=== PATIENT | male | born 1945 | race Caucasian/White ===

== ENCOUNTER 2018-03-04 12:00 | Inpatient (IN) | payer MEDICARE, MEDICAID ==
[~2018-03-04] VITALS: Ht 180.3 cm; Wt 46.5 kg
[~2018-03-04 12:00] MED LIST: ACLI400A2 IH; AMLO-512 PO; ASPI-26 PO; DOXA2TAB PO; OMEG-12 PO; SYMB8060 IH; TIOT4MIS2 IH; VITAD1000 PO
[2018-03-04] MEDS ORDERED: VALS160T2 PO (12:15)
[2018-03-04] MEDS ORDERED: ENOX30DI5 SQ (12:15)
[2018-03-04] MEDS ORDERED: LEVE500T53 PO (12:15)
[2018-03-04] MEDS ORDERED: AMIO200T44 PO (12:15)
[2018-03-04 12:24] LABS: ABG BASE EXCESS 3.6 mmol/L (-2.0-3.0); ABG CARBOXYHEMOGLOBIN 1.9 % (0.0-1.5); ABG HCO3 27.5 mmol/L (22.0-26.0); ABG METHEMOGLOBIN 0.3 % (0.0-1.5); ABG OXYGEN CONTENT 12.8 mL/dL (15.0-23.0); ABG OXYGEN SATURATION 86.2 % (95.0-98.0); ABG OXYHEMOGLOBIN 84.3 % (94.0-100.0); ABG PCO2 35 mmHg (35-45); ABG PH 7.498 (7.35-7.450); ABG TOTAL HEMOGLOBIN 10.8 G/dL (12.0-18.0); O2 DEVICE,BLOOD GAS VENTI MASK (ROOM AIR); PO2, ARTERIAL BG 52.7 mmHg (75.0-83.0); SITE, BLOOD GAS LFT RADIAL; SOURCE, BLOOD GAS ARTERIAL; TEMPERATURE, FAHRENHEIT, BG 98.6 FAHREN (96.0-98.6)
[2018-03-04] MEDS ORDERED: ALBUTEROL SULFATE 5 MG/ML 20 ML NEB SOLN [BULK] NEB ONE (12:30)
[2018-03-04] MEDS ORDERED: MethylPREDNISolone SOD SUCC 125 MG/2 ML VIAL IVP ONE ×2 (12:30→13:30)
[2018-03-04] MEDS ORDERED: IPRATROPIUM BROMIDE 0.5 MG/2.5 ML NEB SOLUTION NEB ONE (12:30)
[2018-03-04 12:48] LABS: HEMATOCRIT 31.9 % (41-53); HEMOGLOBIN 10.7 g/dL (13.5-17.5); MEAN CORPUSCULAR HEMOGLOBIN 30.1 pg (26.0-34.0); MEAN CORPUSCULAR HGB CONC 33.7 G/dL (31.0-37.0); MEAN CORPUSCULAR VOLUME 89 fL (80-100); PLATELET COUNT (AUTO) 409 K/uL (150-450); RED BLOOD CELL COUNT(AUTO) 3.58 MIL/uL (4.50-5.90); RED CELL DISTRIBUTION WIDTH 16.8 % (11.5-14.5)
[2018-03-04 12:59] LABS: ANION GAP 6 mmol/L (8-16); CALCIUM, TOTAL 7.8 mg/dL (8.8-10.5); CARBON DIOXIDE 30 mmol/L (22-29); CHLORIDE 101 mmol/L (98-107); GLOMERULAR FILTR. RATE CALC > 60 mL/min (>60); GLUCOSE,RANDOM 156 mg/dL (70-110); POTASSIUM 3.6 mmol/L (3.5-5.1); SODIUM SERUM 137 mmol/L (136-145); UREA NITROGEN, BLOOD 22 mg/dL (7-18)
[2018-03-04] MEDS ORDERED: PIPERACILLIN/TAZO 3.375 GM/D5W 50 ML IV ONE (13:00)
[2018-03-04] MEDS ORDERED: LEVOFLOXACIN 500 MG/D5% WATER 100 ML IV ONE (13:00)
[2018-03-04 13:12] LABS: B-TYPE NATRIURETIC PEPTIDE 119 pg/mL (0-100)
[2018-03-04 13:15] LABS: ALANINE AMINOTRANSFERASE 50 U/L (12-78); ALBUMIN 1.4 g/dL (3.4-5.0); ALKALINE PHOSPHATASE 136 U/L (46-116); ASPARTATE AMINOTRANSFERASE 36 U/L (15-37); BILIRUBIN,TOTAL 0.2 mg/dL (0.1-1.0); CREATINE KINASE, TOTAL 20 U/L (39-308); TOTAL PROTEIN, SERUM 5.7 g/dL (6.4-8.2)
[2018-03-04 13:20] LABS: BAND NEUTROPHILS % (MANUAL) 16 % (0-5); LYMPHOCYTES % (MANUAL) 7 % (22-44); MONOCYTES % (MANUAL) 2 % (2-9); SEGMENTED NEUTROPHILS % 75 % (40-70)
[2018-03-04] MEDS ORDERED: ONDANSETRON HCL 4 MG/2 ML VIAL IVP PRN (13:30)
[2018-03-04] MEDS ORDERED: ACETAMINOPHEN 325 MG TABLET PO PRN ×2 (13:30)
[2018-03-04] MEDS ORDERED: VANCOMYCIN HCL 1 GM/D5% WATER 200 ML IV ONE (14:00)
[2018-03-04] MEDS: ALBUTEROL SULFATE 2.5 MG/0.5 ML NEB SOLUTION NEB SCH ×3 (15:22→22:58)
[2018-03-04] MEDS: IPRATROPIUM BROMIDE 0.5 MG/2.5 ML NEB SOLUTION NEB SCH ×3 (15:22→22:58)
[2018-03-04 16:00] VITALS: BP 103/63
[2018-03-04] MEDS ORDERED: SODIUM CHLORIDE 0.9% 500 ML IV ONE (16:50)
[2018-03-04] MEDS: PIPERACILLIN/TAZO 3.375 GM/D5W 50 ML IV SCH (18:36)
[2018-03-04] MEDS: MethylPREDNISolone SOD SUCC 125 MG/2 ML VIAL IVP SCH (18:37)
[2018-03-04 20:00] VITALS: BP 90/57
[2018-03-04] MEDS: VANCOMYCIN HCL 1 GM/D5% WATER 200 ML IV SCH (20:32)
[2018-03-04] MEDS: HEPARIN SODIUM,PORCINE 5,000 UNITS/ML VIAL SQ SCH (20:32)
[2018-03-04] MEDS: DOCUSATE SODIUM 100 MG CAPSULE PO SCH (20:32)
[2018-03-05] VITALS: BP 91/48
[2018-03-05] MEDS: PIPERACILLIN/TAZO 3.375 GM/D5W 50 ML IV SCH ×4 (00:30→18:09)
[2018-03-05] MEDS: MethylPREDNISolone SOD SUCC 125 MG/2 ML VIAL IVP SCH ×4 (00:31→18:09)
[2018-03-05] MEDS: IPRATROPIUM BROMIDE 0.5 MG/2.5 ML NEB SOLUTION NEB SCH ×6 (03:26→23:07)
[2018-03-05] MEDS: ALBUTEROL SULFATE 2.5 MG/0.5 ML NEB SOLUTION NEB SCH ×6 (03:27→23:07)
[2018-03-05 04:00] VITALS: BP 94/52
[2018-03-05 05:46] LABS: ANION GAP 4 mmol/L (8-16); CARBON DIOXIDE 31 mmol/L (22-29); CHLORIDE 101 mmol/L (98-107); CREATININE 0.85 mg/dL (0.60-1.30); GLUCOSE,RANDOM 143 mg/dL (70-110); POTASSIUM 3.4 mmol/L (3.5-5.1); SODIUM SERUM 136 mmol/L (136-145); UREA NITROGEN, BLOOD 18 mg/dL (7-18)
[2018-03-05 05:47] LABS: GLOMERULAR FILTR. RATE CALC > 60 mL/min (>60)
[2018-03-05 08:00] VITALS: BP 123/60
[2018-03-05] MEDS ORDERED: POTASSIUM CHLORIDE 20 MEQ ER TABLET PO PRN (08:00)
[2018-03-05] MEDS: LevETIRAcetam 500 MG in DEXTROSE 5%-WATER 100 ML IV SCH ×2 (08:13→20:17)
[2018-03-05] MEDS: HEPARIN SODIUM,PORCINE 5,000 UNITS/ML VIAL SQ SCH ×2 (08:13→20:17)
[2018-03-05] MEDS: VANCOMYCIN HCL 1 GM/D5% WATER 200 ML IV SCH ×2 (08:13→20:18)
[2018-03-05] MEDS: DOCUSATE SODIUM 100 MG CAPSULE PO SCH ×2 (08:14→20:18)
[2018-03-05] MEDS: POTASSIUM CHL 10 MEQ/WATER 50 ML IV PRN ×3 (08:27→13:12)
[2018-03-05 12:00] VITALS: BP 104/70
[2018-03-05 16:00] VITALS: BP 97/63
[2018-03-05 20:00] VITALS: BP 100/55
[2018-03-06] VITALS: BP 102/59
[2018-03-06] MEDS: MethylPREDNISolone SOD SUCC 125 MG/2 ML VIAL IVP SCH ×4 (01:23→18:17)
[2018-03-06] MEDS: PIPERACILLIN/TAZO 3.375 GM/D5W 50 ML IV SCH ×4 (01:23→18:17)
[2018-03-06 04:00] VITALS: BP 105/65
[2018-03-06] MEDS: IPRATROPIUM BROMIDE 0.5 MG/2.5 ML NEB SOLUTION NEB SCH ×6 (04:05→22:49)
[2018-03-06] MEDS: ALBUTEROL SULFATE 2.5 MG/0.5 ML NEB SOLUTION NEB SCH ×6 (04:05→22:49)
[2018-03-06 05:28] LABS: BASOPHILS % (AUTO) 0.1 % (0.0-2.0); EOSINOPHILS % (AUTO) 0 % (1.0-6.0); HEMATOCRIT 31.2 % (41-53); HEMOGLOBIN 10.5 g/dL (13.5-17.5); LYMPHOCYTES # (AUTO) 0.6 K/uL (1.0-4.8); LYMPHOCYTES % (AUTO) 5.2 % (22.0-44.0); MEAN CORPUSCULAR HEMOGLOBIN 29.9 pg (26.0-34.0); MEAN CORPUSCULAR HGB CONC 33.8 G/dL (31.0-37.0); MEAN CORPUSCULAR VOLUME 89 fL (80-100); MONOCYTES # (AUTO) 0.4 K/uL (0.1-1.0); MONOCYTES % (AUTO) 3.3 % (2.0-9.0); NEUTROPHILS # (AUTO) 10.4 K/uL (1.8-7.7); PLATELET COUNT (AUTO) 374 K/uL (150-450); RED BLOOD CELL COUNT(AUTO) 3.52 MIL/uL (4.50-5.90); RED CELL DISTRIBUTION WIDTH 17.4 % (11.5-14.5)
[2018-03-06 05:30] LABS: NEUTROPHILS % (AUTO) 91.4 % (40.0-70.0)
[2018-03-06 05:40] LABS: ANION GAP 6 mmol/L (8-16); CALCIUM, TOTAL 8.1 mg/dL (8.8-10.5); CARBON DIOXIDE 32 mmol/L (22-29); CHLORIDE 101 mmol/L (98-107); CREATININE 0.86 mg/dL (0.60-1.30); GLUCOSE,RANDOM 130 mg/dL (70-110); POTASSIUM 3.2 mmol/L (3.5-5.1); SODIUM SERUM 139 mmol/L (136-145); UREA NITROGEN, BLOOD 19 mg/dL (7-18)
[2018-03-06] MEDS: LORazepam 2 MG/ML VIAL IVP PRN (05:43)
[2018-03-06 05:45] LABS: GLOMERULAR FILTR. RATE CALC > 60 mL/min (>60)
[2018-03-06] MEDS ORDERED: SODIUM CHLORIDE 0.9% 50 ML ONE (06:24)
[2018-03-06] MEDS: POTASSIUM CHL 10 MEQ/WATER 50 ML IV PRN (06:59)
[2018-03-06] MEDS: DOCUSATE SODIUM 100 MG CAPSULE PO SCH ×2 (07:45→20:04)
[2018-03-06] MEDS: HEPARIN SODIUM,PORCINE 5,000 UNITS/ML VIAL SQ SCH ×2 (07:45→20:05)
[2018-03-06] MEDS: VANCOMYCIN HCL 1 GM/D5% WATER 200 ML IV SCH ×2 (07:46→20:03)
[2018-03-06] MEDS: LevETIRAcetam 500 MG in DEXTROSE 5%-WATER 100 ML IV SCH ×2 (07:46→20:03)
[2018-03-06 08:00] VITALS: BP 106/62
[2018-03-06 08:44] LABS: ABG A-A DIFF O2 612.9 mmHg (10-20.0); ABG BASE EXCESS 5.8 mmol/L (-2.0-3.0); ABG CARBOXYHEMOGLOBIN 1.1 % (0.0-1.5); ABG HCO3 29.3 mmol/L (22.0-26.0); ABG METHEMOGLOBIN 0.3 % (0.0-1.5); ABG OXYGEN CONTENT 15.8 mL/dL (15.0-23.0); ABG OXYGEN SATURATION 90.3 % (95.0-98.0); ABG PCO2 38 mmHg (35-45); ABG PH 7.496 (7.35-7.450); ABG TOTAL HEMOGLOBIN 12.6 G/dL (12.0-18.0); PO2, ARTERIAL BG 61.7 mmHg (75.0-83.0); SOURCE, BLOOD GAS ARTERIAL; TEMPERATURE, FAHRENHEIT, BG 98.6 FAHREN (96.0-98.6)
[2018-03-06 08:48] LABS: CPAP, BG 0 cm H2O; O2 DEVICE,BLOOD GAS BIPAP (ROOM AIR); PRESSURE SUPPORT, BG 10 cm H2O; SITE, BLOOD GAS RT BRACHIAL; SPONTANEOUS VT, BG 586 ml
[2018-03-06] MEDS ORDERED: RAPID SEQUENCE KIT [RSI] 1 EACH KIT ONE (10:00)
[2018-03-06] MEDS ORDERED: ETOMIDATE 2 MG/ML 10 ML VIAL IVP ONE (10:15)
[2018-03-06] MEDS ORDERED: ROCURONIUM BROMIDE 10 MG/ML 5 ML VIAL IVP ONE ×2 (10:15→10:30)
[2018-03-06] MEDS: PROPOFOL 1000 MG/ISO-OSM 100 ML IV PRN ×2 (11:02→16:29)
[2018-03-06 11:47] LABS: INR 1.1 (0.9-1.1); PROTHROMBIN TIME 11.4 SEC (9.4-11.6)
[2018-03-06 12:00] VITALS: BP 106/55
[2018-03-06] MEDS ORDERED: HEPARIN SODIUM 1000 UNITS/NS 500 ML ONE (12:22)
[2018-03-06] MEDS: POTASSIUM CHLORIDE 10% 40 MEQ/30 ML LIQUID UDCUP NG PRN (12:23)
[2018-03-06] MEDS ORDERED: SODIUM CHLORIDE 0.9% 500 ML IV ONE (12:37)
[2018-03-06 12:38] LABS: ABG A-A DIFF O2 614.9 mmHg (10-20.0); ABG BASE EXCESS 5.9 mmol/L (-2.0-3.0); ABG CARBOXYHEMOGLOBIN 1.6 % (0.0-1.5); ABG HCO3 29.2 mmol/L (22.0-26.0); ABG METHEMOGLOBIN 0.1 % (0.0-1.5); ABG OXYGEN CONTENT 13.7 mL/dL (15.0-23.0); ABG OXYGEN SATURATION 90.1 % (95.0-98.0); ABG OXYHEMOGLOBIN 88.6 % (94.0-100.0); ABG PCO2 42 mmHg (35-45); ABG PH 7.471 (7.35-7.450); O2 DEVICE,BLOOD GAS VENTILATOR (ROOM AIR); PO2, ARTERIAL BG 58.4 mmHg (75.0-83.0); SITE, BLOOD GAS RT RADIAL; SOURCE, BLOOD GAS ARTERIAL; TEMPERATURE, FAHRENHEIT, BG 97.4 FAHREN (96.0-98.6); VT, ABG 500 ml
[2018-03-06 12:39] LABS: PEEP,BG 5 cm H2O
[2018-03-06 16:00] VITALS: BP 115/60
[2018-03-06] MEDS ORDERED: ETOMIDATE 2 MG/ML 10 ML VIAL ONE (16:41)
[2018-03-06] MEDS ORDERED: ROCURONIUM BROMIDE 10 MG/ML 5 ML VIAL ONE (16:41)
[2018-03-06 20:00] VITALS: BP 118/105
[2018-03-07] VITALS: BP 125/62
[2018-03-07] MEDS: MethylPREDNISolone SOD SUCC 125 MG/2 ML VIAL IVP SCH ×5 (00:11→23:39)
[2018-03-07] MEDS: PIPERACILLIN/TAZO 3.375 GM/D5W 50 ML IV SCH ×4 (01:05→18:27)
[2018-03-07] MEDS: PROPOFOL 1000 MG/ISO-OSM 100 ML IV PRN ×4 (01:35→23:01)
[2018-03-07] MEDS: ALBUTEROL SULFATE 2.5 MG/0.5 ML NEB SOLUTION NEB SCH ×6 (03:28→22:59)
[2018-03-07] MEDS: IPRATROPIUM BROMIDE 0.5 MG/2.5 ML NEB SOLUTION NEB SCH ×6 (03:28→22:59)
[2018-03-07 04:00] VITALS: BP 107/60
[2018-03-07 05:35] LABS: BASOPHILS % (AUTO) 0.2 % (0.0-2.0); EOSINOPHILS % (AUTO) 0 % (1.0-6.0); HEMATOCRIT 28.3 % (41-53); HEMOGLOBIN 9.7 g/dL (13.5-17.5); LYMPHOCYTES # (AUTO) 0.4 K/uL (1.0-4.8); LYMPHOCYTES % (AUTO) 3.5 % (22.0-44.0); MEAN CORPUSCULAR HEMOGLOBIN 30.5 pg (26.0-34.0); MEAN CORPUSCULAR HGB CONC 34.1 G/dL (31.0-37.0); MEAN CORPUSCULAR VOLUME 89 fL (80-100); MONOCYTES # (AUTO) 0.3 K/uL (0.1-1.0); MONOCYTES % (AUTO) 2.7 % (2.0-9.0); NEUTROPHILS # (AUTO) 10.2 K/uL (1.8-7.7); PLATELET COUNT (AUTO) 334 K/uL (150-450); RED BLOOD CELL COUNT(AUTO) 3.17 MIL/uL (4.50-5.90); RED CELL DISTRIBUTION WIDTH 17.2 % (11.5-14.5)
[2018-03-07 05:38] LABS: ANION GAP 6 mmol/L (8-16); CALCIUM, TOTAL 7.9 mg/dL (8.8-10.5); CARBON DIOXIDE 31 mmol/L (22-29); CHLORIDE 104 mmol/L (98-107); CREATININE 0.97 mg/dL (0.60-1.30); GLUCOSE,RANDOM 143 mg/dL (70-110); PHOSPHORUS 4.7 mg/dL (2.5-4.9); POTASSIUM 3.7 mmol/L (3.5-5.1); SODIUM SERUM 141 mmol/L (136-145); UREA NITROGEN, BLOOD 29 mg/dL (7-18)
[2018-03-07 05:50] LABS: GLOMERULAR FILTR. RATE CALC > 60 mL/min (>60)
[2018-03-07 06:06] LABS: NEUTROPHILS % (AUTO) 93.6 % (40.0-70.0)
[2018-03-07] MEDS: POTASSIUM CHLORIDE 10% 40 MEQ/30 ML LIQUID UDCUP NG PRN (06:10)
[2018-03-07] MEDS: LevETIRAcetam 500 MG in DEXTROSE 5%-WATER 100 ML IV SCH ×2 (07:58→19:58)
[2018-03-07] MEDS: VANCOMYCIN HCL 1 GM/D5% WATER 200 ML IV SCH ×2 (07:58→19:58)
[2018-03-07 08:00] VITALS: BP 105/59
[2018-03-07] MEDS ORDERED: DEXTROSE 50%-WATER 25 GM/50 ML SYRINGE IVP PRN (08:15)
[2018-03-07] MEDS: HEPARIN SODIUM,PORCINE 5,000 UNITS/ML VIAL SQ SCH ×2 (08:26→20:33)
[2018-03-07] MEDS: DOCUSATE SODIUM 100 MG CAPSULE PO SCH ×2 (08:26→20:33)
[2018-03-07] MEDS: INSULIN REGULAR, HUMAN 100 UNITS/ML SQ PRN ×3 (11:21→23:38)
[2018-03-07 12:00] VITALS: BP 99/61
[2018-03-07] MEDS ORDERED: GLYCOPYRROLATE 0.2 MG/ML VIAL IM ONE (12:00)
[2018-03-07] MEDS ORDERED: LIDOCAINE HCL 4% 50 ML SOLUTION TP ONE (12:00)
[2018-03-07] MEDS ORDERED: LIDOCAINE HCL 2% 30 ML JELLY TP ONE (12:00)
[2018-03-07] MEDS ORDERED: EPINEPHrine 1:1,000 [1 MG/ML] AMP IM ONE (12:00)
[2018-03-07 12:12] LABS: ABG A-A DIFF O2 180.2 mmHg (10-20.0); ABG CARBOXYHEMOGLOBIN 1.4 % (0.0-1.5); ABG HCO3 29.3 mmol/L (22.0-26.0); ABG METHEMOGLOBIN 0.2 % (0.0-1.5); ABG OXYGEN CONTENT 12.8 mL/dL (15.0-23.0); ABG OXYGEN SATURATION 90.3 % (95.0-98.0); ABG OXYHEMOGLOBIN 88.9 % (94.0-100.0); ABG PCO2 41 mmHg (35-45); ABG PH 7.478 (7.35-7.450); ABG TOTAL HEMOGLOBIN 10.2 G/dL (12.0-18.0); PO2, ARTERIAL BG 58.8 mmHg (75.0-83.0); SOURCE, BLOOD GAS ARTERIAL; TEMPERATURE, FAHRENHEIT, BG 97.5 FAHREN (96.0-98.6)
[2018-03-07 12:13] LABS: O2 DEVICE,BLOOD GAS VENTILATOR (ROOM AIR); PEEP,BG 5 cm H2O; SITE, BLOOD GAS LFT RADIAL; SPONTANEOUS VT, BG 490 ml; VT, ABG 500 ml
[2018-03-07 16:00] VITALS: BP 108/55
[2018-03-07 19:20] LABS: GLUCOSE,POINT OF CARE 166 MG/DL (70-110)
[2018-03-07 19:28] LABS: GLUCOSE,POINT OF CARE 156 MG/DL (70-110)
[2018-03-07 20:00] VITALS: BP 106/63
[2018-03-08] VITALS: BP 123/67
[2018-03-08] MEDS: PIPERACILLIN/TAZO 3.375 GM/D5W 50 ML IV SCH ×4 (01:09→18:33)
[2018-03-08] MEDS: ALBUTEROL SULFATE 2.5 MG/0.5 ML NEB SOLUTION NEB SCH ×6 (02:18→22:58)
[2018-03-08] MEDS: IPRATROPIUM BROMIDE 0.5 MG/2.5 ML NEB SOLUTION NEB SCH ×6 (02:18→22:58)
[2018-03-08] MEDS ORDERED: SODIUM CHLORIDE 0.9% 100 ML ONE (03:08)
[2018-03-08 03:34] LABS: GLUCOSE,POINT OF CARE 180 MG/DL (70-110)
[2018-03-08 04:00] VITALS: BP 115/62
[2018-03-08 04:47] LABS: EOSINOPHILS % (AUTO) 0 % (1.0-6.0); HEMATOCRIT 29.5 % (41-53); HEMOGLOBIN 9.9 g/dL (13.5-17.5); LYMPHOCYTES # (AUTO) 0.3 K/uL (1.0-4.8); LYMPHOCYTES % (AUTO) 3.1 % (22.0-44.0); MEAN CORPUSCULAR HEMOGLOBIN 29.8 pg (26.0-34.0); MEAN CORPUSCULAR HGB CONC 33.4 G/dL (31.0-37.0); MEAN CORPUSCULAR VOLUME 89 fL (80-100); MONOCYTES # (AUTO) 0.3 K/uL (0.1-1.0); MONOCYTES % (AUTO) 2.3 % (2.0-9.0); NEUTROPHILS # (AUTO) 10.5 K/uL (1.8-7.7); PLATELET COUNT (AUTO) 301 K/uL (150-450); RED BLOOD CELL COUNT(AUTO) 3.31 MIL/uL (4.50-5.90); RED CELL DISTRIBUTION WIDTH 17.3 % (11.5-14.5)
[2018-03-08 04:53] LABS: NEUTROPHILS % (AUTO) 94.6 % (40.0-70.0)
[2018-03-08 05:01] LABS: ANION GAP 3 mmol/L (8-16); CALCIUM, TOTAL 7.8 mg/dL (8.8-10.5); CARBON DIOXIDE 33 mmol/L (22-29); CHLORIDE 104 mmol/L (98-107); CREATININE 0.97 mg/dL (0.60-1.30); GLUCOSE,RANDOM 155 mg/dL (70-110); POTASSIUM 3.4 mmol/L (3.5-5.1); SODIUM SERUM 140 mmol/L (136-145); UREA NITROGEN, BLOOD 26 mg/dL (7-18)
[2018-03-08 05:04] LABS: GLOMERULAR FILTR. RATE CALC > 60 mL/min (>60)
[2018-03-08] MEDS: MethylPREDNISolone SOD SUCC 125 MG/2 ML VIAL IVP SCH ×3 (06:00→18:33)
[2018-03-08] MEDS: INSULIN REGULAR, HUMAN 100 UNITS/ML SQ PRN ×3 (06:04→18:34)
[2018-03-08] MEDS: POTASSIUM CHL 10 MEQ/WATER 50 ML IV PRN ×2 (06:29→08:14)
[2018-03-08] MEDS: PROPOFOL 1000 MG/ISO-OSM 100 ML IV PRN ×3 (06:37→18:34)
[2018-03-08 08:00] VITALS: BP 114/62
[2018-03-08 08:00] LABS: GLUCOSE,POINT OF CARE 142 MG/DL (70-110)
[2018-03-08 08:00] LABS: GLUCOSE,POINT OF CARE 144 MG/DL (70-110)
[2018-03-08] MEDS: LevETIRAcetam 500 MG in DEXTROSE 5%-WATER 100 ML IV SCH ×2 (08:14→21:00)
[2018-03-08] MEDS: MULTIVITAMINS WITH MINERALS, THERAPEUTIC 15 ML UDCUP GT SCH (08:15)
[2018-03-08] MEDS: VANCOMYCIN HCL 1 GM/D5% WATER 200 ML IV SCH ×2 (08:15→21:01)
[2018-03-08] MEDS: AMINO ACIDS/PROTEIN HYDROLYS 30 ML TUBE PO SCH (08:15)
[2018-03-08] MEDS: HEPARIN SODIUM,PORCINE 5,000 UNITS/ML VIAL SQ SCH ×2 (08:16→21:01)
[2018-03-08] MEDS: DOCUSATE SODIUM 100 MG CAPSULE PO SCH ×2 (08:16→21:00)
[2018-03-08 08:48] LABS: ABG A-A DIFF O2 170.8 mmHg (10-20.0); ABG BASE EXCESS 3.9 mmol/L (-2.0-3.0); ABG CARBOXYHEMOGLOBIN 0.5 % (0.0-1.5); ABG HCO3 27.6 mmol/L (22.0-26.0); ABG METHEMOGLOBIN 0.3 % (0.0-1.5); ABG OXYGEN CONTENT 13.7 mL/dL (15.0-23.0); ABG OXYGEN SATURATION 93.3 % (95.0-98.0); ABG OXYHEMOGLOBIN 92.6 % (94.0-100.0); ABG PCO2 40 mmHg (35-45); ABG TOTAL HEMOGLOBIN 10.5 G/dL (12.0-18.0); PO2, ARTERIAL BG 69.2 mmHg (75.0-83.0); SOURCE, BLOOD GAS ARTERIAL; TEMPERATURE, FAHRENHEIT, BG 97.5 FAHREN (96.0-98.6)
[2018-03-08 08:49] LABS: O2 DEVICE,BLOOD GAS VENTILATOR (ROOM AIR); PEEP,BG 5 cm H2O; SITE, BLOOD GAS LFT RADIAL; VT, ABG 500 ml
[2018-03-08 12:00] VITALS: BP 108/62
[2018-03-08 16:00] VITALS: BP 107/58
[2018-03-08 20:00] VITALS: BP 151/63
[2018-03-08 20:14] LABS: GLUCOSE,POINT OF CARE 146 MG/DL (70-110)
[2018-03-08 22:28] LABS: GLUCOSE,POINT OF CARE 183 MG/DL (70-110)
[2018-03-09] VITALS: BP 143/72
[2018-03-09] MEDS: PIPERACILLIN/TAZO 3.375 GM/D5W 50 ML IV SCH ×4 (00:24→18:29)
[2018-03-09] MEDS: MethylPREDNISolone SOD SUCC 125 MG/2 ML VIAL IVP SCH ×5 (00:24→23:33)
[2018-03-09] MEDS: INSULIN REGULAR, HUMAN 100 UNITS/ML SQ PRN ×5 (00:27→23:35)
[2018-03-09] MEDS: PROPOFOL 1000 MG/ISO-OSM 100 ML IV PRN ×3 (01:25→23:34)
[2018-03-09] MEDS: IPRATROPIUM BROMIDE 0.5 MG/2.5 ML NEB SOLUTION NEB SCH ×6 (03:06→22:51)
[2018-03-09] MEDS: ALBUTEROL SULFATE 2.5 MG/0.5 ML NEB SOLUTION NEB SCH ×6 (03:07→22:51)
[2018-03-09 04:00] VITALS: BP 120/79
[2018-03-09 05:23] LABS: BASOPHILS % (AUTO) 0.2 % (0.0-2.0); EOSINOPHILS % (AUTO) 0 % (1.0-6.0); HEMATOCRIT 30.6 % (41-53); HEMOGLOBIN 10.3 g/dL (13.5-17.5); LYMPHOCYTES # (AUTO) 0.2 K/uL (1.0-4.8); LYMPHOCYTES % (AUTO) 2.1 % (22.0-44.0); MEAN CORPUSCULAR HGB CONC 33.6 G/dL (31.0-37.0); MEAN CORPUSCULAR VOLUME 89 fL (80-100); MONOCYTES # (AUTO) 0.1 K/uL (0.1-1.0); MONOCYTES % (AUTO) 1.4 % (2.0-9.0); NEUTROPHILS # (AUTO) 10.4 K/uL (1.8-7.7); PLATELET COUNT (AUTO) 299 K/uL (150-450); RED BLOOD CELL COUNT(AUTO) 3.42 MIL/uL (4.50-5.90); RED CELL DISTRIBUTION WIDTH 17.5 % (11.5-14.5)
[2018-03-09 05:30] LABS: ANION GAP 2 mmol/L (8-16); CALCIUM, TOTAL 7.6 mg/dL (8.8-10.5); CARBON DIOXIDE 35 mmol/L (22-29); CHLORIDE 104 mmol/L (98-107); CREATININE 0.79 mg/dL (0.60-1.30); GLUCOSE,RANDOM 174 mg/dL (70-110); POTASSIUM 3.4 mmol/L (3.5-5.1); SODIUM SERUM 141 mmol/L (136-145); UREA NITROGEN, BLOOD 24 mg/dL (7-18); VANCOMYCIN,RANDOM 31.7 mcg/mL (25.0-50.0)
[2018-03-09 05:32] LABS: GLOMERULAR FILTR. RATE CALC > 60 mL/min (>60)
[2018-03-09 05:41] LABS: NEUTROPHILS % (AUTO) 96.3 % (40.0-70.0)
[2018-03-09] MEDS ORDERED: SODIUM CHLORIDE 0.9% 100 ML ONE ×2 (05:47→23:15)
[2018-03-09] MEDS: POTASSIUM CHL 10 MEQ/WATER 50 ML IV PRN ×3 (06:31→10:06)
[2018-03-09 08:00] VITALS: BP 122/58
[2018-03-09 08:09] LABS: GLUCOSE,POINT OF CARE 187 MG/DL (70-110)
[2018-03-09 08:14] LABS: GLUCOSE,POINT OF CARE 169 MG/DL (70-110)
[2018-03-09 08:16] LABS: ABG A-A DIFF O2 133.5 mmHg (10-20.0); ABG BASE EXCESS 7.3 mmol/L (-2.0-3.0); ABG CARBOXYHEMOGLOBIN 0.8 % (0.0-1.5); ABG HCO3 30.5 mmol/L (22.0-26.0); ABG METHEMOGLOBIN 0.3 % (0.0-1.5); ABG OXYGEN CONTENT 14.1 mL/dL (15.0-23.0); ABG OXYGEN SATURATION 94.1 % (95.0-98.0); ABG OXYHEMOGLOBIN 93.1 % (94.0-100.0); ABG PCO2 40 mmHg (35-45); ABG PH 7.502 (7.35-7.450); ABG TOTAL HEMOGLOBIN 10.7 G/dL (12.0-18.0); PO2, ARTERIAL BG 70.4 mmHg (75.0-83.0); SITE, BLOOD GAS LFT RADIAL; SOURCE, BLOOD GAS ARTERIAL; TEMPERATURE, FAHRENHEIT, BG 97.6 FAHREN (96.0-98.6)
[2018-03-09 08:17] LABS: O2 DEVICE,BLOOD GAS VENTILATOR (ROOM AIR); PEEP,BG 5 cm H2O; VT, ABG 500 ml
[2018-03-09] MEDS: AMINO ACIDS/PROTEIN HYDROLYS 30 ML TUBE PO SCH (08:18)
[2018-03-09] MEDS: LevETIRAcetam 500 MG in DEXTROSE 5%-WATER 100 ML IV SCH ×2 (08:19→19:46)
[2018-03-09] MEDS: VANCOMYCIN HCL 1 GM/D5% WATER 200 ML IV SCH (08:20)
[2018-03-09] MEDS: DOCUSATE SODIUM 100 MG CAPSULE PO SCH ×2 (09:00→21:11)
[2018-03-09] MEDS: HEPARIN SODIUM,PORCINE 5,000 UNITS/ML VIAL SQ SCH ×2 (10:02→21:11)
[2018-03-09] MEDS: MULTIVITAMINS WITH MINERALS, THERAPEUTIC 15 ML UDCUP GT SCH (10:03)
[2018-03-09 12:00] VITALS: BP 120/59
[2018-03-09 16:00] VITALS: BP 147/76
[2018-03-09 20:00] VITALS: BP 139/67
[2018-03-10] VITALS (7 sets, daily range): BP systolic 108–142; BP diastolic 53–71
[2018-03-10] MEDS: PIPERACILLIN/TAZO 3.375 GM/D5W 50 ML IV SCH ×4 (00:25→19:22)
[2018-03-10] MEDS: ALBUTEROL SULFATE 2.5 MG/0.5 ML NEB SOLUTION NEB SCH ×6 (03:13→23:16)
[2018-03-10] MEDS: IPRATROPIUM BROMIDE 0.5 MG/2.5 ML NEB SOLUTION NEB SCH ×6 (03:14→23:16)
[2018-03-10 05:33] LABS: BASOPHILS % (AUTO) 0.1 % (0.0-2.0); EOSINOPHILS % (AUTO) 0 % (1.0-6.0); HEMATOCRIT 30.3 % (41-53); HEMOGLOBIN 10.3 g/dL (13.5-17.5); LYMPHOCYTES # (AUTO) 0.2 K/uL (1.0-4.8); LYMPHOCYTES % (AUTO) 1.6 % (22.0-44.0); MEAN CORPUSCULAR HEMOGLOBIN 30.3 pg (26.0-34.0); MEAN CORPUSCULAR HGB CONC 33.9 G/dL (31.0-37.0); MEAN CORPUSCULAR VOLUME 89 fL (80-100); MONOCYTES # (AUTO) 0.2 K/uL (0.1-1.0); MONOCYTES % (AUTO) 1.7 % (2.0-9.0); NEUTROPHILS # (AUTO) 11.9 K/uL (1.8-7.7); PLATELET COUNT (AUTO) 293 K/uL (150-450); RED BLOOD CELL COUNT(AUTO) 3.39 MIL/uL (4.50-5.90); RED CELL DISTRIBUTION WIDTH 17.2 % (11.5-14.5)
[2018-03-10] MEDS: MethylPREDNISolone SOD SUCC 125 MG/2 ML VIAL IVP SCH ×3 (05:34→18:12)
[2018-03-10] MEDS: INSULIN REGULAR, HUMAN 100 UNITS/ML SQ PRN ×2 (05:35→13:53)
[2018-03-10 05:36] LABS: NEUTROPHILS % (AUTO) 96.6 % (40.0-70.0)
[2018-03-10 06:11] LABS: ANION GAP 2 mmol/L (8-16); CALCIUM, TOTAL 7.8 mg/dL (8.8-10.5); CARBON DIOXIDE 36 mmol/L (22-29); CHLORIDE 105 mmol/L (98-107); CREATININE 0.74 mg/dL (0.60-1.30); GLUCOSE,RANDOM 149 mg/dL (70-110); POTASSIUM 3.7 mmol/L (3.5-5.1); SODIUM SERUM 143 mmol/L (136-145); UREA NITROGEN, BLOOD 20 mg/dL (7-18); VANCOMYCIN,RANDOM 18.6 mcg/mL (25.0-50.0)
[2018-03-10 06:22] LABS: GLOMERULAR FILTR. RATE CALC > 60 mL/min (>60)
[2018-03-10] MEDS: PROPOFOL 1000 MG/ISO-OSM 100 ML IV PRN ×3 (06:48→22:21)
[2018-03-10 07:13] LABS: GLUCOSE,POINT OF CARE 146 MG/DL (70-110)
[2018-03-10 07:13] LABS: GLUCOSE,POINT OF CARE 157 MG/DL (70-110)
[2018-03-10] MEDS: AMINO ACIDS/PROTEIN HYDROLYS 30 ML TUBE PO SCH (08:13)
[2018-03-10] MEDS: LevETIRAcetam 500 MG in DEXTROSE 5%-WATER 100 ML IV SCH ×2 (08:14→19:56)
[2018-03-10] MEDS: VANCOMYCIN HCL 1 GM/D5% WATER 200 ML IV SCH (08:14)
[2018-03-10] MEDS: DOCUSATE SODIUM 100 MG CAPSULE PO SCH ×2 (08:15→19:56)
[2018-03-10] MEDS: MULTIVITAMINS WITH MINERALS, THERAPEUTIC 15 ML UDCUP GT SCH (08:15)
[2018-03-10] MEDS: HEPARIN SODIUM,PORCINE 5,000 UNITS/ML VIAL SQ SCH ×2 (08:15→20:53)
[2018-03-10 08:27] LABS: ABG A-A DIFF O2 129.5 mmHg (10-20.0); ABG BASE EXCESS 9.3 mmol/L (-2.0-3.0); ABG CARBOXYHEMOGLOBIN 0.7 % (0.0-1.5); ABG HCO3 32.3 mmol/L (22.0-26.0); ABG METHEMOGLOBIN 0.3 % (0.0-1.5); ABG OXYGEN CONTENT 14.4 mL/dL (15.0-23.0); ABG OXYGEN SATURATION 95.1 % (95.0-98.0); ABG OXYHEMOGLOBIN 94.1 % (94.0-100.0); ABG PCO2 40 mmHg (35-45); ABG PH 7.525 (7.35-7.450); ABG TOTAL HEMOGLOBIN 10.8 G/dL (12.0-18.0); O2 DEVICE,BLOOD GAS VENTILATOR (ROOM AIR); PEEP,BG 5 cm H2O; PO2, ARTERIAL BG 74.3 mmHg (75.0-83.0); SITE, BLOOD GAS RT RADIAL; SOURCE, BLOOD GAS ARTERIAL; TEMPERATURE, FAHRENHEIT, BG 97.9 FAHREN (96.0-98.6); VT, ABG 500 ml
[2018-03-10] MEDS ORDERED: SODIUM CHLORIDE 0.9% 100 ML ONE (15:23)
[2018-03-10 18:15] LABS: GLUCOSE,POINT OF CARE 155 MG/DL (70-110)
[2018-03-10 18:15] LABS: GLUCOSE,POINT OF CARE 188 MG/DL (70-110)
[2018-03-10 23:58] LABS: GLUCOSE,POINT OF CARE 151 MG/DL (70-110)
[2018-03-10 23:58] LABS: GLUCOSE,POINT OF CARE 118 MG/DL (70-110)
[2018-03-11] VITALS: BP 132/69
[2018-03-11] MEDS: PIPERACILLIN/TAZO 3.375 GM/D5W 50 ML IV SCH ×4 (00:02→18:17)
[2018-03-11] MEDS: MethylPREDNISolone SOD SUCC 125 MG/2 ML VIAL IVP SCH ×4 (00:02→17:00)
[2018-03-11] MEDS: INSULIN REGULAR, HUMAN 100 UNITS/ML SQ PRN ×4 (00:03→18:19)
[2018-03-11] MEDS: ALBUTEROL SULFATE 2.5 MG/0.5 ML NEB SOLUTION NEB SCH ×6 (03:16→23:52)
[2018-03-11] MEDS: IPRATROPIUM BROMIDE 0.5 MG/2.5 ML NEB SOLUTION NEB SCH ×6 (03:16→23:52)
[2018-03-11 04:00] VITALS: BP 130/72
[2018-03-11 04:24] LABS: GLUCOSE,POINT OF CARE 173 MG/DL (70-110)
[2018-03-11] MEDS: PROPOFOL 1000 MG/ISO-OSM 100 ML IV PRN ×2 (06:00→15:39)
[2018-03-11 06:03] LABS: BASOPHILS % (AUTO) 0.2 % (0.0-2.0); EOSINOPHILS % (AUTO) 0 % (1.0-6.0); HEMATOCRIT 32.6 % (41-53); LYMPHOCYTES # (AUTO) 0.4 K/uL (1.0-4.8); LYMPHOCYTES % (AUTO) 3.4 % (22.0-44.0); MEAN CORPUSCULAR HEMOGLOBIN 30.2 pg (26.0-34.0); MEAN CORPUSCULAR HGB CONC 33.9 G/dL (31.0-37.0); MEAN CORPUSCULAR VOLUME 89 fL (80-100); MONOCYTES # (AUTO) 0.1 K/uL (0.1-1.0); MONOCYTES % (AUTO) 1.2 % (2.0-9.0); NEUTROPHILS # (AUTO) 10.1 K/uL (1.8-7.7); PLATELET COUNT (AUTO) 301 K/uL (150-450); RED BLOOD CELL COUNT(AUTO) 3.66 MIL/uL (4.50-5.90); RED CELL DISTRIBUTION WIDTH 17.6 % (11.5-14.5)
[2018-03-11 06:08] LABS: ANION GAP 2 mmol/L (8-16); CALCIUM, TOTAL 7.8 mg/dL (8.8-10.5); CARBON DIOXIDE 36 mmol/L (22-29); CHLORIDE 104 mmol/L (98-107); CREATININE 0.69 mg/dL (0.60-1.30); GLUCOSE,RANDOM 172 mg/dL (70-110); POTASSIUM 3.4 mmol/L (3.5-5.1); SODIUM SERUM 142 mmol/L (136-145); UREA NITROGEN, BLOOD 24 mg/dL (7-18)
[2018-03-11 06:14] LABS: GLOMERULAR FILTR. RATE CALC > 60 mL/min (>60)
[2018-03-11] MEDS: POTASSIUM CHLORIDE 10% 40 MEQ/30 ML LIQUID UDCUP NG PRN ×3 (06:18→17:00)
[2018-03-11 06:20] LABS: NEUTROPHILS % (AUTO) 95.2 % (40.0-70.0)
[2018-03-11 06:48] LABS: GLUCOSE,POINT OF CARE 166 MG/DL (70-110)
[2018-03-11] MEDS: VANCOMYCIN HCL 1 GM/D5% WATER 200 ML IV SCH (07:40)
[2018-03-11] MEDS: LevETIRAcetam 500 MG in DEXTROSE 5%-WATER 100 ML IV SCH ×2 (07:40→20:02)
[2018-03-11 08:00] VITALS: BP 112/70
[2018-03-11] MEDS ORDERED: SODIUM CHLORIDE 0.9% 100 ML ONE (08:36)
[2018-03-11] MEDS: DOCUSATE SODIUM 100 MG CAPSULE PO SCH ×2 (08:50→21:21)
[2018-03-11] MEDS: HEPARIN SODIUM,PORCINE 5,000 UNITS/ML VIAL SQ SCH ×2 (08:50→21:21)
[2018-03-11] MEDS: MULTIVITAMINS WITH MINERALS, THERAPEUTIC 15 ML UDCUP GT SCH (08:52)
[2018-03-11] MEDS: AMINO ACIDS/PROTEIN HYDROLYS 30 ML TUBE PO SCH (08:52)
[2018-03-11 12:00] VITALS: BP 145/79
[2018-03-11 14:43] LABS: ABG CARBOXYHEMOGLOBIN 1.2 % (0.0-1.5); ABG HCO3 32.1 mmol/L (22.0-26.0); ABG METHEMOGLOBIN 0.3 % (0.0-1.5); ABG OXYGEN CONTENT 15.2 mL/dL (15.0-23.0); ABG OXYGEN SATURATION 91.3 % (95.0-98.0); ABG OXYHEMOGLOBIN 89.9 % (94.0-100.0); ABG PCO2 39 mmHg (35-45); ABG PH 7.533 (7.35-7.450); PO2, ARTERIAL BG 58.3 mmHg (75.0-83.0); SOURCE, BLOOD GAS ARTERIAL; TEMPERATURE, FAHRENHEIT, BG 97.6 FAHREN (96.0-98.6)
[2018-03-11 14:44] LABS: CPAP, BG 0 cm H2O; O2 DEVICE,BLOOD GAS VENTILATOR (ROOM AIR); PRESSURE SUPPORT, BG 8 cm H2O; SITE, BLOOD GAS LFT RADIAL; SPONTANEOUS VT, BG 442 ml; VENT MODE, BG CPAP (ROOM AIR)
[2018-03-11 16:00] VITALS: BP 139/71
[2018-03-11 17:49] LABS: GLUCOSE,POINT OF CARE 183 MG/DL (70-110)
[2018-03-11 19:34] LABS: GLUCOSE,POINT OF CARE 159 MG/DL (70-110)
[2018-03-11 20:00] VITALS: BP 123/61
[2018-03-12] VITALS: BP 144/83
[2018-03-12] MEDS: MethylPREDNISolone SOD SUCC 125 MG/2 ML VIAL IVP SCH ×5 (00:04→23:59)
[2018-03-12] MEDS: INSULIN REGULAR, HUMAN 100 UNITS/ML SQ PRN ×2 (00:07→11:32)
[2018-03-12] MEDS: PIPERACILLIN/TAZO 3.375 GM/D5W 50 ML IV SCH ×4 (00:16→17:56)
[2018-03-12 02:23] LABS: GLUCOSE,POINT OF CARE 146 MG/DL (70-110)
[2018-03-12] MEDS: IPRATROPIUM BROMIDE 0.5 MG/2.5 ML NEB SOLUTION NEB SCH ×6 (03:46→22:35)
[2018-03-12] MEDS: ALBUTEROL SULFATE 2.5 MG/0.5 ML NEB SOLUTION NEB SCH ×6 (03:46→22:35)
[2018-03-12 04:00] VITALS: BP 162/85
[2018-03-12] MEDS ORDERED: SODIUM CHLORIDE 0.9% 100 ML ONE (04:38)
[2018-03-12 05:00] LABS: ANION GAP -1 mmol/L (8-16); CALCIUM, TOTAL 7.7 mg/dL (8.8-10.5); CARBON DIOXIDE 37 mmol/L (22-29); CHLORIDE 106 mmol/L (98-107); CREATININE 0.64 mg/dL (0.60-1.30); GLUCOSE,RANDOM 145 mg/dL (70-110); POTASSIUM 3.8 mmol/L (3.5-5.1); SODIUM SERUM 142 mmol/L (136-145); UREA NITROGEN, BLOOD 25 mg/dL (7-18); VANCOMYCIN,RANDOM 11.1 mcg/mL (25.0-50.0)
[2018-03-12 05:02] LABS: GLOMERULAR FILTR. RATE CALC > 60 mL/min (>60)
[2018-03-12] MEDS: POTASSIUM CHLORIDE 10% 40 MEQ/30 ML LIQUID UDCUP NG PRN (07:17)
[2018-03-12] MEDS: MULTIVITAMINS WITH MINERALS, THERAPEUTIC 15 ML UDCUP GT SCH (07:48)
[2018-03-12] MEDS: LevETIRAcetam 500 MG in DEXTROSE 5%-WATER 100 ML IV SCH ×2 (07:48→20:06)
[2018-03-12] MEDS: AMINO ACIDS/PROTEIN HYDROLYS 30 ML TUBE PO SCH (07:48)
[2018-03-12] MEDS: DOCUSATE SODIUM 100 MG CAPSULE PO SCH ×2 (07:49→20:08)
[2018-03-12 08:00] VITALS: BP 139/70
[2018-03-12 08:09] LABS: GLUCOSE,POINT OF CARE 135 MG/DL (70-110)
[2018-03-12] MEDS: HEPARIN SODIUM,PORCINE 5,000 UNITS/ML VIAL SQ SCH ×2 (08:49→20:08)
[2018-03-12] MEDS: VANCOMYCIN HCL 750 MG in DEXTROSE 5%-WATER 250 ML IV SCH ×2 (08:49→20:06)
[2018-03-12] MEDS: APIXABAN 2.5 MG TABLET PO SCH ×2 (10:09→20:08)
[2018-03-12 10:43] LABS: ABG A-A DIFF O2 130.6 mmHg (10-20.0); ABG CARBOXYHEMOGLOBIN 0.9 % (0.0-1.5); ABG HCO3 31.1 mmol/L (22.0-26.0); ABG METHEMOGLOBIN 0.3 % (0.0-1.5); ABG OXYGEN CONTENT 15.6 mL/dL (15.0-23.0); ABG OXYGEN SATURATION 94.1 % (95.0-98.0); ABG PCO2 41 mmHg (35-45); ABG PH 7.501 (7.35-7.450); ABG TOTAL HEMOGLOBIN 11.9 G/dL (12.0-18.0); PO2, ARTERIAL BG 71.5 mmHg (75.0-83.0); SOURCE, BLOOD GAS ARTERIAL; TEMPERATURE, FAHRENHEIT, BG 98.6 FAHREN (96.0-98.6)
[2018-03-12 10:44] LABS: CPAP, BG 0 cm H2O; O2 DEVICE,BLOOD GAS VENTILATOR (ROOM AIR); PEEP,BG 0 cm H2O; PRESSURE SUPPORT, BG 8 cm H2O; SITE, BLOOD GAS RT RADIAL; SPONTANEOUS VT, BG 485 ml; VENT MODE, BG SPONTANEOUS (ROOM AIR)
[2018-03-12 11:49] LABS: GLUCOSE,POINT OF CARE 172 MG/DL (70-110)
[2018-03-12 12:00] VITALS: BP 137/77
[2018-03-12 16:00] VITALS: BP 135/75
[2018-03-12 20:00] VITALS: BP 125/74
[2018-03-13] VITALS: BP 131/70
[2018-03-13] MEDS: PIPERACILLIN/TAZO 3.375 GM/D5W 50 ML IV SCH ×4 (00:38→18:16)
[2018-03-13] MEDS: ALBUTEROL SULFATE 2.5 MG/0.5 ML NEB SOLUTION NEB SCH ×6 (03:36→22:35)
[2018-03-13] MEDS: IPRATROPIUM BROMIDE 0.5 MG/2.5 ML NEB SOLUTION NEB SCH ×6 (03:36→22:35)
[2018-03-13 04:00] VITALS: BP 118/80
[2018-03-13 06:03] LABS: GLUCOSE,POINT OF CARE 116 MG/DL (70-110)
[2018-03-13 06:04] LABS: GLUCOSE,POINT OF CARE 117 MG/DL (70-110)
[2018-03-13 06:04] LABS: GLUCOSE,POINT OF CARE 130 MG/DL (70-110)
[2018-03-13] MEDS: MethylPREDNISolone SOD SUCC 125 MG/2 ML VIAL IVP SCH ×2 (06:24→11:20)
[2018-03-13 06:25] LABS: EOSINOPHILS % (AUTO) 0 % (1.0-6.0); HEMATOCRIT 37.3 % (41-53); HEMOGLOBIN 12.4 g/dL (13.5-17.5); LYMPHOCYTES # (AUTO) 0.4 K/uL (1.0-4.8); LYMPHOCYTES % (AUTO) 2.7 % (22.0-44.0); MEAN CORPUSCULAR HEMOGLOBIN 29.7 pg (26.0-34.0); MEAN CORPUSCULAR HGB CONC 33.2 G/dL (31.0-37.0); MEAN CORPUSCULAR VOLUME 90 fL (80-100); MONOCYTES # (AUTO) 0.2 K/uL (0.1-1.0); MONOCYTES % (AUTO) 1.8 % (2.0-9.0); NEUTROPHILS # (AUTO) 12.3 K/uL (1.8-7.7); PLATELET COUNT (AUTO) 334 K/uL (150-450); RED BLOOD CELL COUNT(AUTO) 4.17 MIL/uL (4.50-5.90)
[2018-03-13 06:38] LABS: ALANINE AMINOTRANSFERASE 32 U/L (12-78); ALBUMIN 1.8 g/dL (3.4-5.0); ALKALINE PHOSPHATASE 91 U/L (46-116); ANION GAP 3 mmol/L (8-16); ASPARTATE AMINOTRANSFERASE 14 U/L (15-37); BILIRUBIN,TOTAL 0.4 mg/dL (0.1-1.0); CALCIUM, TOTAL 7.8 mg/dL (8.8-10.5); CARBON DIOXIDE 36 mmol/L (22-29); CHLORIDE 97 mmol/L (98-107); CREATININE 0.57 mg/dL (0.60-1.30); GLUCOSE,RANDOM 110 mg/dL (70-110); POTASSIUM 3.6 mmol/L (3.5-5.1); SODIUM SERUM 136 mmol/L (136-145); UREA NITROGEN, BLOOD 20 mg/dL (7-18)
[2018-03-13 06:41] LABS: NEUTROPHILS % (AUTO) 95.5 % (40.0-70.0)
[2018-03-13 06:42] LABS: GLOMERULAR FILTR. RATE CALC > 60 mL/min (>60)
[2018-03-13 08:00] VITALS: BP 124/87
[2018-03-13] MEDS: AMINO ACIDS/PROTEIN HYDROLYS 30 ML TUBE PO SCH (08:00)
[2018-03-13] MEDS: LevETIRAcetam 500 MG in DEXTROSE 5%-WATER 100 ML IV SCH ×2 (08:15→19:42)
[2018-03-13] MEDS: DOCUSATE SODIUM 100 MG CAPSULE PO SCH ×2 (08:16→20:58)
[2018-03-13] MEDS: VANCOMYCIN HCL 750 MG in DEXTROSE 5%-WATER 250 ML IV SCH ×2 (08:16→19:42)
[2018-03-13] MEDS: MULTIVITAMINS WITH MINERALS, THERAPEUTIC 15 ML UDCUP GT SCH (08:16)
[2018-03-13] MEDS: APIXABAN 2.5 MG TABLET PO SCH ×2 (08:17→20:58)
[2018-03-13] MEDS: HEPARIN SODIUM,PORCINE 5,000 UNITS/ML VIAL SQ SCH ×2 (08:17→20:58)
[2018-03-13] MEDS: POTASSIUM CHL 10 MEQ/WATER 50 ML IV PRN ×4 (11:11→23:50)
[2018-03-13] MEDS: INSULIN REGULAR, HUMAN 100 UNITS/ML SQ PRN (11:33)
[2018-03-13 12:00] VITALS: BP 121/76
[2018-03-13 16:00] VITALS: BP 137/78
[2018-03-13] MEDS: MethylPREDNISolone SOD SUCC 40 MG/ML VIAL IVP SCH ×2 (17:00→23:50)
[2018-03-13 20:00] VITALS: BP 134/76
[2018-03-13 22:00] LABS: GLUCOSE,POINT OF CARE 160 MG/DL (70-110)
[2018-03-13 22:00] LABS: GLUCOSE,POINT OF CARE 114 MG/DL (70-110)
[2018-03-13 23:48] LABS: GLUCOSE,POINT OF CARE 123 MG/DL (70-110)
[2018-03-14] VITALS: BP 144/84
[2018-03-14] MEDS: PIPERACILLIN/TAZO 3.375 GM/D5W 50 ML IV SCH ×4 (00:39→18:03)
[2018-03-14] MEDS: POTASSIUM CHL 10 MEQ/WATER 50 ML IV PRN ×2 (00:40→01:39)
[2018-03-14] MEDS: ALBUTEROL SULFATE 2.5 MG/0.5 ML NEB SOLUTION NEB SCH ×6 (03:06→23:29)
[2018-03-14] MEDS: IPRATROPIUM BROMIDE 0.5 MG/2.5 ML NEB SOLUTION NEB SCH ×6 (03:06→23:29)
[2018-03-14 04:00] VITALS: BP 130/84
[2018-03-14 05:27] LABS: BASOPHILS % (AUTO) 0.1 % (0.0-2.0); EOSINOPHILS % (AUTO) 0 % (1.0-6.0); HEMATOCRIT 40.3 % (41-53); HEMOGLOBIN 13.4 g/dL (13.5-17.5); LYMPHOCYTES # (AUTO) 0.4 K/uL (1.0-4.8); LYMPHOCYTES % (AUTO) 2.5 % (22.0-44.0); MEAN CORPUSCULAR HEMOGLOBIN 29.7 pg (26.0-34.0); MEAN CORPUSCULAR HGB CONC 33.4 G/dL (31.0-37.0); MEAN CORPUSCULAR VOLUME 89 fL (80-100); MONOCYTES # (AUTO) 0.4 K/uL (0.1-1.0); MONOCYTES % (AUTO) 2.7 % (2.0-9.0); NEUTROPHILS # (AUTO) 14.2 K/uL (1.8-7.7); PLATELET COUNT (AUTO) 348 K/uL (150-450); RED BLOOD CELL COUNT(AUTO) 4.52 MIL/uL (4.50-5.90)
[2018-03-14 05:39] LABS: ALANINE AMINOTRANSFERASE 37 U/L (12-78); ALBUMIN 1.9 g/dL (3.4-5.0); ALKALINE PHOSPHATASE 100 U/L (46-116); ANION GAP 2 mmol/L (8-16); ASPARTATE AMINOTRANSFERASE 19 U/L (15-37); BILIRUBIN,TOTAL 0.5 mg/dL (0.1-1.0); CARBON DIOXIDE 33 mmol/L (22-29); CHLORIDE 98 mmol/L (98-107); GLUCOSE,RANDOM 104 mg/dL (70-110); POTASSIUM 5.4 mmol/L (3.5-5.1); SODIUM SERUM 133 mmol/L (136-145); TOTAL PROTEIN, SERUM 6.2 g/dL (6.4-8.2); UREA NITROGEN, BLOOD 19 mg/dL (7-18); VANCOMYCIN,RANDOM 18.6 mcg/mL (25.0-50.0)
[2018-03-14 05:47] LABS: GLOMERULAR FILTR. RATE CALC > 60 mL/min (>60)
[2018-03-14] MEDS: MethylPREDNISolone SOD SUCC 40 MG/ML VIAL IVP SCH ×3 (05:47→17:09)
[2018-03-14 06:00] LABS: GLUCOSE,POINT OF CARE 106 MG/DL (70-110)
[2018-03-14 06:50] LABS: NEUTROPHILS % (AUTO) 94.7 % (40.0-70.0)
[2018-03-14 08:00] VITALS: BP 133/96
[2018-03-14] MEDS ORDERED: FUROSEMIDE 20 MG/2 ML VIAL IVP ONE (08:30)
[2018-03-14] MEDS: LevETIRAcetam 500 MG in DEXTROSE 5%-WATER 100 ML IV SCH ×2 (08:43→20:12)
[2018-03-14] MEDS: VANCOMYCIN HCL 750 MG in DEXTROSE 5%-WATER 250 ML IV SCH ×2 (08:43→20:12)
[2018-03-14] MEDS: APIXABAN 2.5 MG TABLET PO SCH ×2 (08:45→20:12)
[2018-03-14] MEDS: DOCUSATE SODIUM 100 MG CAPSULE PO SCH ×2 (08:45→20:12)
[2018-03-14] MEDS: MULTIVITAMINS WITH MINERALS, THERAPEUTIC 15 ML UDCUP GT SCH (08:46)
[2018-03-14] MEDS: HEPARIN SODIUM,PORCINE 5,000 UNITS/ML VIAL SQ SCH (08:47)
[2018-03-14] MEDS: DILTIAZEM HCL 30 MG TABLET PO SCH ×2 (09:19→22:33)
[2018-03-14] MEDS: FLUCONAZOLE 400 MG/NACL ISOOSM 200 ML IV SCH (11:43)
[2018-03-14] MEDS: INSULIN LISPRO 100 UNITS/ML SQ PRN (11:44)
[2018-03-14 12:00] VITALS: BP 128/85
[2018-03-14] MEDS: LORazepam 2 MG/ML VIAL IVP PRN (14:03)
[2018-03-14 16:00] VITALS: BP 109/72
[2018-03-14 18:09] LABS: GLUCOSE,POINT OF CARE 164 MG/DL (70-110)
[2018-03-14 18:09] LABS: GLUCOSE,POINT OF CARE 88 MG/DL (70-110)
[2018-03-14 20:00] VITALS: BP 107/53
[2018-03-15] VITALS: BP 125/83
[2018-03-15] MEDS ORDERED: AZITHROMYCIN 500 MG/NS 250 ML IV SCH
[2018-03-15] MEDS: MethylPREDNISolone SOD SUCC 40 MG/ML VIAL IVP SCH ×4 (00:04→17:05)
[2018-03-15] MEDS: PIPERACILLIN/TAZO 3.375 GM/D5W 50 ML IV SCH ×2 (00:05→06:21)
[2018-03-15] MEDS: ALBUTEROL SULFATE 2.5 MG/0.5 ML NEB SOLUTION NEB SCH ×6 (02:54→23:04)
[2018-03-15] MEDS: IPRATROPIUM BROMIDE 0.5 MG/2.5 ML NEB SOLUTION NEB SCH ×6 (02:54→23:04)
[2018-03-15 04:00] VITALS: BP 113/77
[2018-03-15 05:41] LABS: ANION GAP 5 mmol/L (8-16); CALCIUM, TOTAL 7.9 mg/dL (8.8-10.5); CARBON DIOXIDE 33 mmol/L (22-29); CHLORIDE 97 mmol/L (98-107); CREATININE 0.73 mg/dL (0.60-1.30); GLUCOSE,RANDOM 88 mg/dL (70-110); POTASSIUM 3.8 mmol/L (3.5-5.1); SODIUM SERUM 135 mmol/L (136-145); UREA NITROGEN, BLOOD 26 mg/dL (7-18)
[2018-03-15 05:43] LABS: GLOMERULAR FILTR. RATE CALC > 60 mL/min (>60)
[2018-03-15 06:49] LABS: GLUCOSE,POINT OF CARE 100 MG/DL (70-110)
[2018-03-15 06:49] LABS: GLUCOSE,POINT OF CARE 85 MG/DL (70-110)
[2018-03-15 08:00] VITALS: BP 113/74
[2018-03-15] MEDS: DOCUSATE SODIUM 100 MG CAPSULE PO SCH ×2 (09:26→20:30)
[2018-03-15] MEDS: APIXABAN 2.5 MG TABLET PO SCH ×2 (09:26→20:30)
[2018-03-15] MEDS: LevETIRAcetam 500 MG in DEXTROSE 5%-WATER 100 ML IV SCH ×2 (09:26→20:29)
[2018-03-15] MEDS: DILTIAZEM HCL 30 MG TABLET PO SCH ×2 (09:27→20:29)
[2018-03-15] MEDS: MULTIVITAMINS WITH MINERALS, THERAPEUTIC 15 ML UDCUP GT SCH ×2 (09:27→09:58)
[2018-03-15] MEDS: FLUCONAZOLE 400 MG/NACL ISOOSM 200 ML IV SCH (10:05)
[2018-03-15] MEDS: NYSTATIN 500,000 UNITS/5 ML SUSPENSION UDCUP PO SCH ×2 (10:13→17:04)
[2018-03-15 12:00] VITALS: BP 121/76
[2018-03-15 12:28] LABS: GLUCOSE,POINT OF CARE 134 MG/DL (70-110)
[2018-03-15 16:00] VITALS: BP 124/62
[2018-03-15] MEDS: AMPICILLIN SODIUM/SULBACTAM NA 3 GM in SODIUM CHLORIDE 0.9% 100 ML IV SCH (18:30)
[2018-03-15 18:59] LABS: GLUCOSE,POINT OF CARE 128 MG/DL (70-110)
[2018-03-15 20:00] VITALS: BP 144/90
[2018-03-15] MEDS: INSULIN LISPRO 100 UNITS/ML SQ PRN (22:01)
[2018-03-16] VITALS: BP 138/94
[2018-03-16] MEDS: MethylPREDNISolone SOD SUCC 40 MG/ML VIAL IVP SCH ×4 (00:29→17:31)
[2018-03-16] MEDS: AMPICILLIN SODIUM/SULBACTAM NA 3 GM in SODIUM CHLORIDE 0.9% 100 ML IV SCH ×4 (00:29→17:31)
[2018-03-16] MEDS: NYSTATIN 500,000 UNITS/5 ML SUSPENSION UDCUP PO SCH ×3 (00:29→15:34)
[2018-03-16] MEDS ORDERED: SODIUM CHLORIDE 0.9% 250 ML IV ONE ×2 (00:33→20:44)
[2018-03-16] MEDS: ALBUTEROL SULFATE 2.5 MG/0.5 ML NEB SOLUTION NEB SCH ×6 (02:37→22:31)
[2018-03-16] MEDS: IPRATROPIUM BROMIDE 0.5 MG/2.5 ML NEB SOLUTION NEB SCH ×6 (02:37→22:31)
[2018-03-16 04:00] VITALS: BP 148/64
[2018-03-16 05:17] LABS: HEMATOCRIT 39.5 % (41-53); HEMOGLOBIN 13.1 g/dL (13.5-17.5); MEAN CORPUSCULAR HEMOGLOBIN 29.5 pg (26.0-34.0); MEAN CORPUSCULAR HGB CONC 33.3 G/dL (31.0-37.0); MEAN CORPUSCULAR VOLUME 89 fL (80-100); PLATELET COUNT (AUTO) 260 K/uL (150-450); RED BLOOD CELL COUNT(AUTO) 4.45 MIL/uL (4.50-5.90); RED CELL DISTRIBUTION WIDTH 18.8 % (11.5-14.5)
[2018-03-16 05:28] LABS: ALANINE AMINOTRANSFERASE 31 U/L (12-78); ALBUMIN 1.7 g/dL (3.4-5.0); ALKALINE PHOSPHATASE 91 U/L (46-116); ANION GAP 5 mmol/L (8-16); ASPARTATE AMINOTRANSFERASE 18 U/L (15-37); BILIRUBIN,TOTAL 0.5 mg/dL (0.1-1.0); CALCIUM, TOTAL 7.9 mg/dL (8.8-10.5); CARBON DIOXIDE 33 mmol/L (22-29); CHLORIDE 105 mmol/L (98-107); CREATININE 0.68 mg/dL (0.60-1.30); GLOMERULAR FILTR. RATE CALC > 60 mL/min (>60); GLUCOSE,RANDOM 126 mg/dL (70-110); POTASSIUM 3.5 mmol/L (3.5-5.1); SODIUM SERUM 143 mmol/L (136-145); TOTAL PROTEIN, SERUM 5.7 g/dL (6.4-8.2); UREA NITROGEN, BLOOD 30 mg/dL (7-18)
[2018-03-16 06:44] LABS: GLUCOSE,POINT OF CARE 130 MG/DL (70-110)
[2018-03-16 06:44] LABS: GLUCOSE,POINT OF CARE 182 MG/DL (70-110)
[2018-03-16 07:16] LABS: BAND NEUTROPHILS % (MANUAL) 8 % (0-5); LYMPHOCYTES % (MANUAL) 2 % (22-44); MONOCYTES % (MANUAL) 2 % (2-9); SEGMENTED NEUTROPHILS % 88 % (40-70)
[2018-03-16 08:00] VITALS: BP 152/99
[2018-03-16] MEDS: DOCUSATE SODIUM 100 MG CAPSULE PO SCH ×2 (08:17→20:18)
[2018-03-16] MEDS: APIXABAN 2.5 MG TABLET PO SCH ×2 (08:17→20:18)
[2018-03-16] MEDS: MULTIVITAMINS WITH MINERALS, THERAPEUTIC 15 ML UDCUP GT SCH (08:17)
[2018-03-16] MEDS: DILTIAZEM HCL 30 MG TABLET PO SCH ×3 (08:17→20:18)
[2018-03-16] MEDS: LevETIRAcetam 500 MG in DEXTROSE 5%-WATER 100 ML IV SCH ×2 (08:18→20:18)
[2018-03-16] MEDS ORDERED: AMIODARONE HCL 200 MG TABLET PO SCH (09:00)
[2018-03-16] MEDS: FLUCONAZOLE 400 MG/NACL ISOOSM 200 ML IV SCH (10:47)
[2018-03-16] MEDS: INSULIN LISPRO 100 UNITS/ML SQ PRN (11:30)
[2018-03-16 12:00] VITALS: BP 121/85
[2018-03-16 12:19] LABS: GLUCOSE,POINT OF CARE 161 MG/DL (70-110)
[2018-03-16] MEDS: LORazepam 2 MG/ML VIAL IVP PRN ×2 (13:15→21:07)
[2018-03-16 16:00] VITALS: BP 129/86
[2018-03-16 17:44] LABS: GLUCOSE,POINT OF CARE 111 MG/DL (70-110)
[2018-03-16 20:00] VITALS: BP 135/87
[2018-03-16] MEDS: POTASSIUM CHLORIDE 10% 40 MEQ/30 ML LIQUID UDCUP NG PRN (20:18)
[2018-03-17] VITALS: BP 128/87
[2018-03-17] MEDS: MethylPREDNISolone SOD SUCC 40 MG/ML VIAL IVP SCH ×5 (00:13→23:19)
[2018-03-17] MEDS: AMPICILLIN SODIUM/SULBACTAM NA 3 GM in SODIUM CHLORIDE 0.9% 100 ML IV SCH ×5 (00:13→23:20)
[2018-03-17] MEDS: NYSTATIN 500,000 UNITS/5 ML SUSPENSION UDCUP PO SCH ×4 (00:13→23:20)
[2018-03-17] MEDS: IPRATROPIUM BROMIDE 0.5 MG/2.5 ML NEB SOLUTION NEB SCH ×6 (02:38→22:59)
[2018-03-17] MEDS: ALBUTEROL SULFATE 2.5 MG/0.5 ML NEB SOLUTION NEB SCH ×6 (02:38→22:59)
[2018-03-17 04:00] VITALS: BP 130/52
[2018-03-17 05:21] LABS: EOSINOPHILS % (AUTO) 0 % (1.0-6.0); HEMATOCRIT 39.5 % (41-53); HEMOGLOBIN 13.1 g/dL (13.5-17.5); LYMPHOCYTES # (AUTO) 0.3 K/uL (1.0-4.8); LYMPHOCYTES % (AUTO) 3.5 % (22.0-44.0); MEAN CORPUSCULAR HEMOGLOBIN 29.7 pg (26.0-34.0); MEAN CORPUSCULAR HGB CONC 33.3 G/dL (31.0-37.0); MEAN CORPUSCULAR VOLUME 89 fL (80-100); MONOCYTES # (AUTO) 0.2 K/uL (0.1-1.0); MONOCYTES % (AUTO) 2.4 % (2.0-9.0); NEUTROPHILS # (AUTO) 9.2 K/uL (1.8-7.7); PLATELET COUNT (AUTO) 266 K/uL (150-450); RED BLOOD CELL COUNT(AUTO) 4.43 MIL/uL (4.50-5.90); RED CELL DISTRIBUTION WIDTH 18.1 % (11.5-14.5)
[2018-03-17 05:22] LABS: NEUTROPHILS % (AUTO) 94.1 % (40.0-70.0)
[2018-03-17 05:24] LABS: ANION GAP 6 mmol/L (8-16); CARBON DIOXIDE 32 mmol/L (22-29); CHLORIDE 108 mmol/L (98-107); CREATININE 0.74 mg/dL (0.60-1.30); GLUCOSE,RANDOM 118 mg/dL (70-110); SODIUM SERUM 146 mmol/L (136-145); UREA NITROGEN, BLOOD 23 mg/dL (7-18)
[2018-03-17 05:26] LABS: GLOMERULAR FILTR. RATE CALC > 60 mL/min (>60)
[2018-03-17 06:59] LABS: GLUCOSE,POINT OF CARE 134 MG/DL (70-110)
[2018-03-17 06:59] LABS: GLUCOSE,POINT OF CARE 125 MG/DL (70-110)
[2018-03-17 08:00] VITALS: BP 145/88
[2018-03-17] MEDS: LevETIRAcetam 500 MG in DEXTROSE 5%-WATER 100 ML IV SCH ×2 (08:48→20:58)
[2018-03-17] MEDS: FLUCONAZOLE 400 MG/NACL ISOOSM 200 ML IV SCH (08:48)
[2018-03-17] MEDS: MULTIVITAMINS WITH MINERALS, THERAPEUTIC 15 ML UDCUP GT SCH (08:49)
[2018-03-17] MEDS: DILTIAZEM HCL 30 MG TABLET PO SCH ×3 (08:49→20:57)
[2018-03-17] MEDS: DOCUSATE SODIUM 100 MG CAPSULE PO SCH ×2 (08:50→20:57)
[2018-03-17] MEDS: APIXABAN 2.5 MG TABLET PO SCH ×2 (08:50→20:57)
[2018-03-17 12:00] VITALS: BP 118/91
[2018-03-17] MEDS: INSULIN LISPRO 100 UNITS/ML SQ PRN ×2 (12:28→23:28)
[2018-03-17 16:00] VITALS: BP 137/85
[2018-03-17 19:08] LABS: GLUCOSE,POINT OF CARE 176 MG/DL (70-110)
[2018-03-17 19:08] LABS: GLUCOSE,POINT OF CARE 139 MG/DL (70-110)
[2018-03-17 20:00] VITALS: BP 125/83
[2018-03-17] MEDS: LORazepam 2 MG/ML VIAL IVP PRN (23:20)
[2018-03-18] VITALS: BP 114/74
[2018-03-18] MEDS: ALBUTEROL SULFATE 2.5 MG/0.5 ML NEB SOLUTION NEB SCH ×6 (03:13→23:14)
[2018-03-18] MEDS: IPRATROPIUM BROMIDE 0.5 MG/2.5 ML NEB SOLUTION NEB SCH ×6 (03:13→23:14)
[2018-03-18 04:00] VITALS: BP 140/80
[2018-03-18 05:07] LABS: BASOPHILS % (AUTO) 0.3 % (0.0-2.0); EOSINOPHILS % (AUTO) 0.1 % (1.0-6.0); HEMATOCRIT 37.6 % (41-53); HEMOGLOBIN 12.3 g/dL (13.5-17.5); LYMPHOCYTES # (AUTO) 0.3 K/uL (1.0-4.8); LYMPHOCYTES % (AUTO) 5.7 % (22.0-44.0); MEAN CORPUSCULAR HEMOGLOBIN 29.1 pg (26.0-34.0); MEAN CORPUSCULAR HGB CONC 32.8 G/dL (31.0-37.0); MEAN CORPUSCULAR VOLUME 89 fL (80-100); MONOCYTES # (AUTO) 0.2 K/uL (0.1-1.0); MONOCYTES % (AUTO) 3.9 % (2.0-9.0); NEUTROPHILS # (AUTO) 4.8 K/uL (1.8-7.7); PLATELET COUNT (AUTO) 214 K/uL (150-450); RED BLOOD CELL COUNT(AUTO) 4.24 MIL/uL (4.50-5.90); RED CELL DISTRIBUTION WIDTH 18.6 % (11.5-14.5)
[2018-03-18 05:23] LABS: ANION GAP 4 mmol/L (8-16); CALCIUM, TOTAL 8.1 mg/dL (8.8-10.5); CARBON DIOXIDE 34 mmol/L (22-29); CHLORIDE 109 mmol/L (98-107); CREATININE 0.55 mg/dL (0.60-1.30); GLUCOSE,RANDOM 154 mg/dL (70-110); POTASSIUM 3.1 mmol/L (3.5-5.1); SODIUM SERUM 147 mmol/L (136-145); UREA NITROGEN, BLOOD 22 mg/dL (7-18)
[2018-03-18 05:25] LABS: GLOMERULAR FILTR. RATE CALC > 60 mL/min (>60)
[2018-03-18] MEDS: INSULIN LISPRO 100 UNITS/ML SQ PRN ×3 (05:50→17:25)
[2018-03-18] MEDS: AMPICILLIN SODIUM/SULBACTAM NA 3 GM in SODIUM CHLORIDE 0.9% 100 ML IV SCH ×3 (05:51→17:24)
[2018-03-18] MEDS: POTASSIUM CHLORIDE 10% 40 MEQ/30 ML LIQUID UDCUP NG PRN (05:51)
[2018-03-18] MEDS: MethylPREDNISolone SOD SUCC 40 MG/ML VIAL IVP SCH ×2 (05:51→12:49)
[2018-03-18 08:00] VITALS: BP 145/80
[2018-03-18 08:14] LABS: GLUCOSE,POINT OF CARE 159 MG/DL (70-110)
[2018-03-18 08:14] LABS: GLUCOSE,POINT OF CARE 196 MG/DL (70-110)
[2018-03-18] MEDS: DOCUSATE SODIUM 100 MG CAPSULE PO SCH ×2 (08:56→20:25)
[2018-03-18] MEDS: APIXABAN 2.5 MG TABLET PO SCH ×2 (08:56→20:25)
[2018-03-18] MEDS: LevETIRAcetam 500 MG in DEXTROSE 5%-WATER 100 ML IV SCH ×2 (08:56→20:25)
[2018-03-18] MEDS: NYSTATIN 500,000 UNITS/5 ML SUSPENSION UDCUP PO SCH ×2 (08:56→16:21)
[2018-03-18] MEDS: DILTIAZEM HCL 30 MG TABLET PO SCH ×3 (08:56→20:25)
[2018-03-18] MEDS: FLUCONAZOLE 400 MG/NACL ISOOSM 200 ML IV SCH (08:57)
[2018-03-18] MEDS: MULTIVITAMINS WITH MINERALS, THERAPEUTIC 15 ML UDCUP GT SCH (08:57)
[2018-03-18 09:45] LABS: LEGIONELLA PNEUMO AG URINE Negative (Negative); ORGANISM ID Not indicated.; S PNEUMO SOURCE Urine; STREP PNEUMONIAE AG URINE Negative (Negative); STREP.PNEUMO BODY FLUID CULT. Not Indicated
[2018-03-18 12:00] VITALS: BP 140/92
[2018-03-18] MEDS ORDERED: SODIUM CHLORIDE 0.9% 100 ML ONE (12:46)
[2018-03-18] MEDS ORDERED: AMIODARONE HCL 150 MG in DEXTROSE 5%-WATER 97 ML IV ONE (12:50)
[2018-03-18] MEDS ORDERED: AMIODARONE HCL 360 MG in DEXTROSE 5%-WATER 242.8 ML IV ONE (13:00)
[2018-03-18 15:49] LABS: GLUCOSE,POINT OF CARE 172 MG/DL (70-110)
[2018-03-18 16:00] VITALS: BP 130/95
[2018-03-18] MEDS: MAGNESIUM HYDROXIDE SUSPENSION 30 ML UDCUP PO PRN (17:37)
[2018-03-18 18:34] LABS: GLUCOSE,POINT OF CARE 157 MG/DL (70-110)
[2018-03-18] MEDS ORDERED: AMIODARONE HCL 540 MG in DEXTROSE 5%-WATER 239.2 ML IV ONE (19:00)
[2018-03-18 20:00] VITALS: BP 124/78
[2018-03-18] MEDS: LORazepam 2 MG/ML VIAL IVP PRN (20:25)
[2018-03-19] VITALS: BP 125/67
[2018-03-19] MEDS: MethylPREDNISolone SOD SUCC 40 MG/ML VIAL IVP SCH ×4 (00:33→23:09)
[2018-03-19] MEDS: AMPICILLIN SODIUM/SULBACTAM NA 3 GM in SODIUM CHLORIDE 0.9% 100 ML IV SCH ×5 (00:33→23:09)
[2018-03-19] MEDS: NYSTATIN 500,000 UNITS/5 ML SUSPENSION UDCUP PO SCH ×4 (00:35→23:09)
[2018-03-19] MEDS: INSULIN LISPRO 100 UNITS/ML SQ PRN ×5 (00:43→23:41)
[2018-03-19] MEDS: ALBUTEROL SULFATE 2.5 MG/0.5 ML NEB SOLUTION NEB SCH ×6 (02:48→23:00)
[2018-03-19] MEDS: IPRATROPIUM BROMIDE 0.5 MG/2.5 ML NEB SOLUTION NEB SCH ×6 (02:48→23:00)
[2018-03-19 04:00] VITALS: BP 130/83
[2018-03-19 05:30] LABS: BASOPHILS % (AUTO) 0.2 % (0.0-2.0); EOSINOPHILS % (AUTO) 0 % (1.0-6.0); HEMATOCRIT 36.3 % (41-53); LYMPHOCYTES # (AUTO) 0.2 K/uL (1.0-4.8); LYMPHOCYTES % (AUTO) 5.7 % (22.0-44.0); MEAN CORPUSCULAR HEMOGLOBIN 29.3 pg (26.0-34.0); MEAN CORPUSCULAR HGB CONC 33.1 G/dL (31.0-37.0); MEAN CORPUSCULAR VOLUME 89 fL (80-100); MONOCYTES # (AUTO) 0.2 K/uL (0.1-1.0); MONOCYTES % (AUTO) 4.9 % (2.0-9.0); PLATELET COUNT (AUTO) 140 K/uL (150-450); RED CELL DISTRIBUTION WIDTH 18.4 % (11.5-14.5)
[2018-03-19 05:34] LABS: NEUTROPHILS % (AUTO) 89.2 % (40.0-70.0)
[2018-03-19 07:54] LABS: GLUCOSE,POINT OF CARE 182 MG/DL (70-110)
[2018-03-19 07:54] LABS: GLUCOSE,POINT OF CARE 154 MG/DL (70-110)
[2018-03-19 08:00] VITALS: BP 129/81
[2018-03-19] MEDS: LevETIRAcetam 500 MG in DEXTROSE 5%-WATER 100 ML IV SCH ×2 (08:43→20:49)
[2018-03-19] MEDS: MULTIVITAMINS WITH MINERALS, THERAPEUTIC 15 ML UDCUP GT SCH (08:44)
[2018-03-19] MEDS: DOCUSATE SODIUM 100 MG CAPSULE PO SCH ×2 (08:44→20:49)
[2018-03-19] MEDS: FLUCONAZOLE 400 MG/NACL ISOOSM 200 ML IV SCH (08:44)
[2018-03-19] MEDS: DILTIAZEM HCL 30 MG TABLET PO SCH ×3 (08:44→20:49)
[2018-03-19] MEDS: APIXABAN 2.5 MG TABLET PO SCH ×2 (08:44→20:49)
[2018-03-19] MEDS ORDERED: DIGOXIN 250 MCG/ML 2 ML AMP IVP ONE (09:00)
[2018-03-19 12:00] VITALS: BP 133/76
[2018-03-19] MEDS: AMIODARONE HCL 750 MG in DEXTROSE 5%-WATER 485 ML IV SCH (12:11)
[2018-03-19] MEDS ORDERED: SODIUM CHLORIDE 0.9% 100 ML ONE (12:18)
[2018-03-19 16:00] VITALS: BP 134/77
[2018-03-19 19:34] LABS: GLUCOSE,POINT OF CARE 206 MG/DL (70-110)
[2018-03-19 19:34] LABS: GLUCOSE,POINT OF CARE 237 MG/DL (70-110)
[2018-03-19 20:00] VITALS: BP 129/79
[2018-03-19] MEDS: MAGNESIUM HYDROXIDE SUSPENSION 30 ML UDCUP PO PRN (20:49)
[2018-03-19] MEDS: LORazepam 2 MG/ML VIAL IVP PRN (23:09)
[2018-03-20] VITALS (7 sets, daily range): BP systolic 106–147; BP diastolic 70–89
[2018-03-20 02:13] LABS: GLUCOSE,POINT OF CARE 229 MG/DL (70-110)
[2018-03-20] MEDS: IPRATROPIUM BROMIDE 0.5 MG/2.5 ML NEB SOLUTION NEB SCH ×5 (02:42→19:53)
[2018-03-20] MEDS: ALBUTEROL SULFATE 2.5 MG/0.5 ML NEB SOLUTION NEB SCH ×5 (02:42→19:53)
[2018-03-20] MEDS: AMPICILLIN SODIUM/SULBACTAM NA 3 GM in SODIUM CHLORIDE 0.9% 100 ML IV SCH ×3 (05:01→17:50)
[2018-03-20] MEDS: INSULIN LISPRO 100 UNITS/ML SQ PRN (05:02)
[2018-03-20 06:18] LABS: ANION GAP 2 mmol/L (8-16); BASOPHILS % (AUTO) 0.1 % (0.0-2.0); CALCIUM, TOTAL 7.7 mg/dL (8.8-10.5); CARBON DIOXIDE 34 mmol/L (22-29); CHLORIDE 101 mmol/L (98-107); EOSINOPHILS % (AUTO) 0.1 % (1.0-6.0); GLUCOSE,RANDOM 156 mg/dL (70-110); HEMOGLOBIN 11.8 g/dL (13.5-17.5); LYMPHOCYTES # (AUTO) 0.2 K/uL (1.0-4.8); LYMPHOCYTES % (AUTO) 6.4 % (22.0-44.0); MEAN CORPUSCULAR HEMOGLOBIN 29.5 pg (26.0-34.0); MEAN CORPUSCULAR HGB CONC 33.6 G/dL (31.0-37.0); MEAN CORPUSCULAR VOLUME 88 fL (80-100); MONOCYTES # (AUTO) 0.1 K/uL (0.1-1.0); MONOCYTES % (AUTO) 4.7 % (2.0-9.0); NEUTROPHILS # (AUTO) 2.1 K/uL (1.8-7.7); PLATELET COUNT (AUTO) 94 K/uL (150-450); RED BLOOD CELL COUNT(AUTO) 3.99 MIL/uL (4.50-5.90); RED CELL DISTRIBUTION WIDTH 18.8 % (11.5-14.5); SODIUM SERUM 137 mmol/L (136-145); UREA NITROGEN, BLOOD 20 mg/dL (7-18)
[2018-03-20 06:20] LABS: GLOMERULAR FILTR. RATE CALC > 60 mL/min (>60)
[2018-03-20 06:23] LABS: GLUCOSE,POINT OF CARE 158 MG/DL (70-110)
[2018-03-20 06:33] LABS: NEUTROPHILS % (AUTO) 88.7 % (40.0-70.0)
[2018-03-20] MEDS ORDERED: BISACODYL 10 MG RECTAL RECTAL SUPPOSITORY PR PRN (08:15)
[2018-03-20] MEDS: LevETIRAcetam 500 MG in DEXTROSE 5%-WATER 100 ML IV SCH ×2 (08:48→21:04)
[2018-03-20] MEDS: MethylPREDNISolone SOD SUCC 40 MG/ML VIAL IVP SCH ×3 (08:49→23:56)
[2018-03-20] MEDS: DOCUSATE SODIUM 100 MG CAPSULE PO SCH ×2 (08:49→21:00)
[2018-03-20] MEDS: MULTIVITAMINS WITH MINERALS, THERAPEUTIC 15 ML UDCUP GT SCH (08:49)
[2018-03-20] MEDS: APIXABAN 2.5 MG TABLET PO SCH ×2 (08:49→21:00)
[2018-03-20] MEDS: NYSTATIN 500,000 UNITS/5 ML SUSPENSION UDCUP PO SCH ×2 (08:49→15:34)
[2018-03-20] MEDS: DILTIAZEM HCL 30 MG TABLET PO SCH ×3 (08:49→21:00)
[2018-03-20] MEDS: FLUCONAZOLE 400 MG/NACL ISOOSM 200 ML IV SCH (09:10)
[2018-03-20 12:29] LABS: GLUCOSE,POINT OF CARE 202 MG/DL (70-110)
[2018-03-20] MEDS ORDERED: SODIUM CHLORIDE 0.9% 100 ML ONE (12:37)
[2018-03-20] MEDS: AMIODARONE HCL 750 MG in DEXTROSE 5%-WATER 485 ML IV SCH (12:41)
[2018-03-20] MEDS: INSULIN REGULAR, HUMAN 100 UNITS/ML SQ PRN ×2 (12:57→18:09)
[2018-03-20] MEDS: METOCLOPRAMIDE HCL 5 MG TABLET PO SCH ×2 (15:34→21:00)
[2018-03-20] MEDS ORDERED: AMIODARONE HCL 200 MG TABLET PO ONE (16:30)
[2018-03-20] MEDS: AMIODARONE HCL 200 MG TABLET PO SCH (21:00)
[2018-03-20] MEDS: CefTRIAXone SODIUM 1 GM in DEXTROSE 5%-WATER 10 ML IV SCH (23:56)
[2018-03-21] MEDS: INSULIN REGULAR, HUMAN 100 UNITS/ML SQ PRN ×2 (00:48→18:06)
[2018-03-21] MEDS: IPRATROPIUM BROMIDE 0.5 MG/2.5 ML NEB SOLUTION NEB SCH ×7 (03:25→22:56)
[2018-03-21] MEDS: ALBUTEROL SULFATE 2.5 MG/0.5 ML NEB SOLUTION NEB SCH ×7 (03:25→22:56)
[2018-03-21 04:03] VITALS: BP 113/75
[2018-03-21 05:43] LABS: GLUCOMETER DEV NAME(LOC) 5N 1P; GLUCOSE,POINT OF CARE 179 MG/DL (70-110)
[2018-03-21 05:57] LABS: BASOPHILS % (AUTO) 0.3 % (0.0-2.0); EOSINOPHILS % (AUTO) 0 % (1.0-6.0); HEMATOCRIT 41.1 % (41-53); HEMOGLOBIN 13.7 g/dL (13.5-17.5); LYMPHOCYTES # (AUTO) 0.2 K/uL (1.0-4.8); LYMPHOCYTES % (AUTO) 8.5 % (22.0-44.0); MEAN CORPUSCULAR HEMOGLOBIN 29.3 pg (26.0-34.0); MEAN CORPUSCULAR HGB CONC 33.2 G/dL (31.0-37.0); MEAN CORPUSCULAR VOLUME 88 fL (80-100); MONOCYTES # (AUTO) 0.1 K/uL (0.1-1.0); MONOCYTES % (AUTO) 4.7 % (2.0-9.0); NEUTROPHILS # (AUTO) 2.5 K/uL (1.8-7.7); PLATELET COUNT (AUTO) 84 K/uL (150-450); RED BLOOD CELL COUNT(AUTO) 4.67 MIL/uL (4.50-5.90); RED CELL DISTRIBUTION WIDTH 18.6 % (11.5-14.5)
[2018-03-21 06:47] LABS: NEUTROPHILS % (AUTO) 86.5 % (40.0-70.0)
[2018-03-21 07:23] LABS: GLUCOMETER DEV NAME(LOC) 5S 1M; GLUCOSE,POINT OF CARE 163 MG/DL (70-110)
[2018-03-21 07:36] VITALS: BP 128/77
[2018-03-21] MEDS: NYSTATIN 500,000 UNITS/5 ML SUSPENSION UDCUP PO SCH ×3 (08:00→16:00)
[2018-03-21] MEDS: MetroNIDAZOLE 500 MG TABLET PO SCH ×3 (08:00→16:00)
[2018-03-21] MEDS: LevETIRAcetam 500 MG in DEXTROSE 5%-WATER 100 ML IV SCH ×2 (08:03→19:59)
[2018-03-21] MEDS: MethylPREDNISolone SOD SUCC 40 MG/ML VIAL IVP SCH ×2 (08:03→15:55)
[2018-03-21] MEDS ORDERED: DEXTROSE 5%-0.45% SODIUM CHL 1,000 ML IV ONE (08:30)
[2018-03-21] MEDS: FLUCONAZOLE 400 MG/NACL ISOOSM 200 ML IV SCH (08:45)
[2018-03-21] MEDS: DILTIAZEM HCL 30 MG TABLET PO SCH ×3 (09:00→19:59)
[2018-03-21] MEDS: APIXABAN 2.5 MG TABLET PO SCH ×2 (09:00→19:59)
[2018-03-21] MEDS: METOCLOPRAMIDE HCL 5 MG TABLET PO SCH ×3 (09:00→20:00)
[2018-03-21] MEDS: DOCUSATE SODIUM 100 MG CAPSULE PO SCH ×2 (09:00→19:59)
[2018-03-21] MEDS: AMIODARONE HCL 200 MG TABLET PO SCH ×2 (09:00→20:00)
[2018-03-21] MEDS: MULTIVITAMINS WITH MINERALS, THERAPEUTIC 15 ML UDCUP GT SCH (09:00)
[2018-03-21 11:16] VITALS: BP 111/75
[2018-03-21 15:09] LABS: GLUCOMETER DEV NAME(LOC) 5S 2Q; GLUCOSE,POINT OF CARE 73 MG/DL (70-110)
[2018-03-21 15:09] LABS: GLUCOMETER DEV NAME(LOC) 5S 2Q; GLUCOSE,POINT OF CARE 116 MG/DL (70-110)
[2018-03-21 15:45] VITALS: BP 117/71
[2018-03-21 19:55] VITALS: BP 111/59
[2018-03-22 00:10] VITALS: BP 104/58
[2018-03-22] MEDS: NYSTATIN 500,000 UNITS/5 ML SUSPENSION UDCUP PO SCH ×3 (00:16→15:21)
[2018-03-22] MEDS: MethylPREDNISolone SOD SUCC 40 MG/ML VIAL IVP SCH ×3 (00:16→15:21)
[2018-03-22] MEDS: CefTRIAXone SODIUM 1 GM in DEXTROSE 5%-WATER 10 ML IV SCH (00:16)
[2018-03-22] MEDS: MetroNIDAZOLE 500 MG TABLET PO SCH ×3 (00:16→15:21)
[2018-03-22] MEDS: INSULIN REGULAR, HUMAN 100 UNITS/ML SQ PRN ×3 (00:52→18:29)
[2018-03-22] MEDS: IPRATROPIUM BROMIDE 0.5 MG/2.5 ML NEB SOLUTION NEB SCH ×6 (02:59→23:02)
[2018-03-22] MEDS: ALBUTEROL SULFATE 2.5 MG/0.5 ML NEB SOLUTION NEB SCH ×6 (02:59→23:01)
[2018-03-22 04:30] VITALS: BP 96/64
[2018-03-22 07:17] VITALS: BP 114/73
[2018-03-22] MEDS: LevETIRAcetam 500 MG in DEXTROSE 5%-WATER 100 ML IV SCH ×2 (08:31→20:09)
[2018-03-22] MEDS: DILTIAZEM HCL 30 MG TABLET PO SCH ×3 (08:32→20:09)
[2018-03-22] MEDS: AMIODARONE HCL 200 MG TABLET PO SCH ×2 (08:32→20:09)
[2018-03-22] MEDS: METOCLOPRAMIDE HCL 5 MG TABLET PO SCH ×3 (08:32→20:08)
[2018-03-22] MEDS: APIXABAN 2.5 MG TABLET PO SCH ×3 (08:32→20:08)
[2018-03-22] MEDS: DOCUSATE SODIUM 100 MG CAPSULE PO SCH ×2 (08:32→20:08)
[2018-03-22] MEDS: MULTIVITAMINS WITH MINERALS, THERAPEUTIC 15 ML UDCUP GT SCH (08:35)
[2018-03-22] MEDS: FLUCONAZOLE 400 MG/NACL ISOOSM 200 ML IV SCH (09:12)
[2018-03-22 10:29] LABS: GLUCOMETER DEV NAME(LOC) 5S 2Q; GLUCOSE,POINT OF CARE 181 MG/DL (70-110)
[2018-03-22 12:17] VITALS: BP 127/83
[2018-03-22 15:09] VITALS: BP 111/69
[2018-03-22] MEDS: BISACODYL 10 MG RECTAL RECTAL SUPPOSITORY PR PRN (15:21)
[2018-03-22 19:59] VITALS: BP 116/75
[2018-03-22 20:14] LABS: GLUCOMETER DEV NAME(LOC) 5S 1M; GLUCOSE,POINT OF CARE 174 MG/DL (70-110)
[2018-03-22 20:14] LABS: GLUCOMETER DEV NAME(LOC) 5S 1M; GLUCOSE,POINT OF CARE 166 MG/DL (70-110)
[2018-03-22] MEDS ORDERED: SODIUM CHLORIDE 0.9% 100 ML ONE (20:29)
[2018-03-23 00:17] VITALS: BP 111/69
[2018-03-23] MEDS: NYSTATIN 500,000 UNITS/5 ML SUSPENSION UDCUP PO SCH ×3 (00:42→15:49)
[2018-03-23] MEDS: MethylPREDNISolone SOD SUCC 40 MG/ML VIAL IVP SCH (00:43)
[2018-03-23] MEDS: MetroNIDAZOLE 500 MG TABLET PO SCH ×3 (00:43→15:49)
[2018-03-23] MEDS: CefTRIAXone SODIUM 1 GM in DEXTROSE 5%-WATER 10 ML IV SCH ×2 (00:54→23:45)
[2018-03-23] MEDS: INSULIN REGULAR, HUMAN 100 UNITS/ML SQ PRN ×4 (02:04→17:56)
[2018-03-23 02:23] LABS: GLUCOMETER DEV NAME(LOC) 5N 1P; GLUCOSE,POINT OF CARE 139 MG/DL (70-110)
[2018-03-23 02:23] LABS: GLUCOMETER DEV NAME(LOC) 5N 1P; GLUCOSE,POINT OF CARE 183 MG/DL (70-110)
[2018-03-23] MEDS: ALBUTEROL SULFATE 2.5 MG/0.5 ML NEB SOLUTION NEB SCH ×6 (02:49→22:40)
[2018-03-23] MEDS: IPRATROPIUM BROMIDE 0.5 MG/2.5 ML NEB SOLUTION NEB SCH ×6 (02:49→22:40)
[2018-03-23 04:10] VITALS: BP 128/77
[2018-03-23 06:52] LABS: ALANINE AMINOTRANSFERASE 88 U/L (12-78); ALBUMIN 1.7 g/dL (3.4-5.0); ALKALINE PHOSPHATASE 110 U/L (46-116); ANION GAP 3 mmol/L (8-16); ASPARTATE AMINOTRANSFERASE 52 U/L (15-37); BILIRUBIN,TOTAL 0.3 mg/dL (0.1-1.0); CALCIUM, TOTAL 8.3 mg/dL (8.8-10.5); CARBON DIOXIDE 35 mmol/L (22-29); CHLORIDE 101 mmol/L (98-107); CREATININE 0.74 mg/dL (0.60-1.30); GLUCOSE,RANDOM 138 mg/dL (70-110); SODIUM SERUM 139 mmol/L (136-145); TOTAL PROTEIN, SERUM 5.5 g/dL (6.4-8.2); UREA NITROGEN, BLOOD 25 mg/dL (7-18)
[2018-03-23 07:00] LABS: GLOMERULAR FILTR. RATE CALC > 60 mL/min (>60)
[2018-03-23 07:22] VITALS: BP 131/86
[2018-03-23] MEDS: LevETIRAcetam 500 MG in DEXTROSE 5%-WATER 100 ML IV SCH ×2 (08:59→20:27)
[2018-03-23] MEDS: AMIODARONE HCL 200 MG TABLET PO SCH (09:00)
[2018-03-23] MEDS: DILTIAZEM HCL 30 MG TABLET PO SCH ×2 (09:00→15:49)
[2018-03-23] MEDS: METOCLOPRAMIDE HCL 5 MG TABLET PO SCH ×2 (09:00→15:49)
[2018-03-23] MEDS: MULTIVITAMINS WITH MINERALS, THERAPEUTIC 15 ML UDCUP GT SCH (09:00)
[2018-03-23] MEDS: APIXABAN 2.5 MG TABLET PO SCH (09:00)
[2018-03-23] MEDS ORDERED: PredniSONE 20 MG TABLET PO SCH (09:00)
[2018-03-23] MEDS: DOCUSATE SODIUM 100 MG CAPSULE PO SCH (09:01)
[2018-03-23 09:48] LABS: GLUCOMETER DEV NAME(LOC) 5S 2Q; GLUCOSE,POINT OF CARE 146 MG/DL (70-110)
[2018-03-23] MEDS: FLUCONAZOLE 400 MG/NACL ISOOSM 200 ML IV SCH (10:47)
[2018-03-23 11:24] VITALS: BP 135/61
[2018-03-23 15:33] VITALS: BP 108/63
[2018-03-23 19:28] LABS: GLUCOMETER DEV NAME(LOC) 5S 1M; GLUCOSE,POINT OF CARE 164 MG/DL (70-110)
[2018-03-23 20:02] VITALS: BP 122/69
[2018-03-23 20:19] LABS: GLUCOMETER DEV NAME(LOC) 5S 2Q; GLUCOSE,POINT OF CARE 171 MG/DL (70-110)
[2018-03-23] MEDS: METOCLOPRAMIDE HCL 5 MG TABLET NG SCH (20:50)
[2018-03-23] MEDS: DILTIAZEM HCL 30 MG TABLET NG SCH (20:50)
[2018-03-23] MEDS: AMIODARONE HCL 200 MG TABLET NG SCH (20:51)
[2018-03-23] MEDS: APIXABAN 2.5 MG TABLET NG SCH (20:51)
[2018-03-23] MEDS: DOCUSATE SODIUM 100 MG CAPSULE NG SCH (23:42)
[2018-03-23] MEDS: BISACODYL 10 MG RECTAL RECTAL SUPPOSITORY PR PRN (23:43)
[2018-03-23] MEDS: MetroNIDAZOLE 500 MG TABLET NG SCH (23:43)
[2018-03-24] VITALS (15 sets, daily range): BP systolic 66–138; BP diastolic 33–84
[2018-03-24] MEDS: NYSTATIN 500,000 UNITS/5 ML SUSPENSION UDCUP PO SCH ×4 (01:15→15:35)
[2018-03-24] MEDS: ALBUTEROL SULFATE 2.5 MG/0.5 ML NEB SOLUTION NEB SCH ×5 (02:58→19:00)
[2018-03-24] MEDS: IPRATROPIUM BROMIDE 0.5 MG/2.5 ML NEB SOLUTION NEB SCH ×5 (02:59→19:00)
[2018-03-24 06:06] LABS: ANION GAP 2 mmol/L (8-16); CALCIUM, TOTAL 8.2 mg/dL (8.8-10.5); CARBON DIOXIDE 34 mmol/L (22-29); CHLORIDE 101 mmol/L (98-107); CREATININE 0.84 mg/dL (0.60-1.30); GLUCOSE,RANDOM 108 mg/dL (70-110); POTASSIUM 4.9 mmol/L (3.5-5.1); SODIUM SERUM 137 mmol/L (136-145); UREA NITROGEN, BLOOD 26 mg/dL (7-18)
[2018-03-24 06:08] LABS: ABG A-A DIFF O2 636.9 mmHg (10-20.0); ABG BASE EXCESS 3.8 mmol/L (-2.0-3.0); ABG CARBOXYHEMOGLOBIN 1.5 % (0.0-1.5); ABG HCO3 27.7 mmol/L (22.0-26.0); ABG METHEMOGLOBIN 0.3 % (0.0-1.5); ABG OXYGEN CONTENT 14.2 mL/dL (15.0-23.0); ABG OXYHEMOGLOBIN 77.6 % (94.0-100.0); ABG PCO2 33 mmHg (35-45); ABG PH 7.528 (7.35-7.450); PO2, ARTERIAL BG 43.5 mmHg (75.0-83.0); SOURCE, BLOOD GAS ARTERIAL; TEMPERATURE, FAHRENHEIT, BG 98.6 FAHREN (96.0-98.6)
[2018-03-24 06:10] LABS: SITE, BLOOD GAS RT RADIAL
[2018-03-24 06:11] LABS: O2 DEVICE,BLOOD GAS NON REBREATHER (ROOM AIR)
[2018-03-24 06:49] LABS: GLOMERULAR FILTR. RATE CALC > 60 mL/min (>60)
[2018-03-24] MEDS: LevETIRAcetam 500 MG in DEXTROSE 5%-WATER 100 ML IV SCH ×2 (08:23→20:36)
[2018-03-24] MEDS: MetroNIDAZOLE 500 MG TABLET NG SCH ×2 (08:29→15:34)
[2018-03-24] MEDS: MULTIVITAMINS WITH MINERALS, THERAPEUTIC 15 ML UDCUP NG SCH ×2 (08:30→08:48)
[2018-03-24] MEDS: DILTIAZEM HCL 30 MG TABLET NG SCH ×2 (08:30→15:34)
[2018-03-24] MEDS: DOCUSATE SODIUM 100 MG CAPSULE NG SCH (08:30)
[2018-03-24] MEDS: APIXABAN 2.5 MG TABLET NG SCH (08:31)
[2018-03-24] MEDS: METOCLOPRAMIDE HCL 5 MG TABLET NG SCH ×2 (08:31→15:34)
[2018-03-24] MEDS: AMIODARONE HCL 200 MG TABLET NG SCH (08:49)
[2018-03-24] MEDS ORDERED: SODIUM CHLORIDE 0.9% 500 ML IV ONE (08:50)
[2018-03-24] MEDS ORDERED: SODIUM CHLORIDE 0.9% 250 ML IV ONE (09:00)
[2018-03-24] MEDS ORDERED: PredniSONE 20 MG TABLET NG SCH (09:00)
[2018-03-24] MEDS: FLUCONAZOLE 400 MG/NACL ISOOSM 200 ML IV SCH (09:26)
[2018-03-24 10:24] LABS: ABG A-A DIFF O2 625.7 mmHg (10-20.0); ABG BASE EXCESS 2.1 mmol/L (-2.0-3.0); ABG CARBOXYHEMOGLOBIN 0.8 % (0.0-1.5); ABG HCO3 26.7 mmol/L (22.0-26.0); ABG METHEMOGLOBIN 0.3 % (0.0-1.5); ABG OXYGEN CONTENT 15.8 mL/dL (15.0-23.0); ABG PCO2 31 mmHg (35-45); ABG PH 7.526 (7.35-7.450); ABG TOTAL HEMOGLOBIN 12.6 G/dL (12.0-18.0); O2 DEVICE,BLOOD GAS BIPAP (ROOM AIR); PO2, ARTERIAL BG 56.6 mmHg (75.0-83.0); SITE, BLOOD GAS RT BRACHIAL; SOURCE, BLOOD GAS ARTERIAL; SPONTANEOUS VT, BG 500 ml; TEMPERATURE, FAHRENHEIT, BG 98.6 FAHREN (96.0-98.6)
[2018-03-24] MEDS: MethylPREDNISolone SOD SUCC 125 MG/2 ML VIAL IVP SCH ×3 (11:35→23:41)
[2018-03-24] MEDS ORDERED: MORPHINE SULFATE 100 MG/NS/PF 100 ML IV PRN (17:01)
[2018-03-24] MEDS ORDERED: ALBUTEROL SULFATE 2.5 MG/0.5 ML NEB SOLUTION NEB PRN (22:00)
[2018-03-24] MEDS ORDERED: IPRATROPIUM BROMIDE 0.5 MG/2.5 ML NEB SOLUTION NEB PRN (22:00)
[2018-03-25 08:19] LABS: GLUCOMETER DEV NAME(LOC) 5N 1P; GLUCOSE,POINT OF CARE 163 MG/DL (70-110)
[2018-03-25 11:34] LABS: GLUCOMETER DEV NAME(LOC) 5S 1M; GLUCOSE,POINT OF CARE 111 MG/DL (70-110)
[2018-03-25 11:34] LABS: GLUCOMETER DEV NAME(LOC) 5S 1M; GLUCOSE,POINT OF CARE 90 MG/DL (70-110)
[2018-03-25 16:44] LABS: GLUCOMETER DEV NAME(LOC) 5S 2Q; GLUCOSE,POINT OF CARE 50 MG/DL (70-110)
[2018-03-25 16:44] LABS: GLUCOMETER DEV NAME(LOC) 5S 2Q; GLUCOSE,POINT OF CARE 140 MG/DL (70-110)
[2018-03-25 16:44] LABS: GLUCOMETER DEV NAME(LOC) 5S 2Q; GLUCOSE,POINT OF CARE 90 MG/DL (70-110)
[2018-03-26 22:43] LABS: GLUCOMETER DEV NAME(LOC) 5N 2S; GLUCOSE,POINT OF CARE 119 MG/DL (70-110)
== END 2018-03-25 08:00 | disposition expired | DRG 853 ==
LOC: EMS 12:01 → ICU 13:30 → 5S 03-20 17:30
PROVIDERS: ADMIT Internal Medicine; ATTEND Internal Medicine
PROC: 5A09357 Assistance with Respiratory Ventilation, Less than 24 Consecutive Hours, Continuous Positive Airway Pressure (ICD-10-PCS; 2018-03-04)
PROC: 5A09357 Assistance with Respiratory Ventilation, Less than 24 Consecutive Hours, Continuous Positive Airway Pressure (ICD-10-PCS; 2018-03-05)
PROC: 5A1955Z Respiratory Ventilation, Greater than 96 Consecutive Hours (ICD-10-PCS; principal; 2018-03-06)
PROC: 0BH17EZ Insertion of Endotracheal Airway into Trachea, Via Natural or Artificial Opening (ICD-10-PCS; 2018-03-06)
PROC: 02HV33Z Insertion of Infusion Device into Superior Vena Cava, Percutaneous Approach (ICD-10-PCS; 2018-03-06)
PROC: 5A09357 Assistance with Respiratory Ventilation, Less than 24 Consecutive Hours, Continuous Positive Airway Pressure (ICD-10-PCS; 2018-03-06)
PROC: 0B9D8ZX Drainage of Right Middle Lung Lobe, Via Natural or Artificial Opening Endoscopic, Diagnostic (ICD-10-PCS; 2018-03-07)
PROC: 5A09357 Assistance with Respiratory Ventilation, Less than 24 Consecutive Hours, Continuous Positive Airway Pressure (ICD-10-PCS; 2018-03-24)
DX: A41.9 Sepsis, unspecified organism (principal); J69.0 Pneumonitis due to inhalation of food and vomit; J96.21 Acute and chronic respiratory failure with hypoxia; E43 Unspecified severe protein-calorie malnutrition; J85.1 Abscess of lung with pneumonia; J44.1 Chronic obstructive pulmonary disease with (acute) exacerbation; D61.818 Other pancytopenia; I48.92 Unspecified atrial flutter; B37.0 Candidal stomatitis; Z68.1 Body mass index [BMI] 19.9 or less, adult; E11.9 Type 2 diabetes mellitus without complications; F10.20 Alcohol dependence, uncomplicated; G40.909 Epilepsy, unspecified, not intractable, without status epilepticus; I27.20 Pulmonary hypertension, unspecified; I11.0 Hypertensive heart disease with heart failure; R91.8 Other nonspecific abnormal finding of lung field; Z51.5 Encounter for palliative care; Z66 Do not resuscitate; I48.2 Chronic atrial fibrillation; I50.9 Heart failure, unspecified; K59.00 Constipation, unspecified; R13.10 Dysphagia, unspecified; Z82.5 Family history of asthma and other chronic lower respiratory diseases; Z82.49 Family history of ischemic heart disease and other diseases of the circulatory system; Z83.3 Family history of diabetes mellitus; Z86.73 Personal history of transient ischemic attack (TIA), and cerebral infarction without residual deficits; Z87.81 Personal history of (healed) traumatic fracture; Z79.82 Long term (current) use of aspirin
CPT/HCPCS: 31624; 36569; 71250; 74018; 82805; 83735; 84100; 84132; 87015; 87040; 87045; 87070; 87081; 87106; 87205; 87206; 87220; 87449; 87899; 88108; 88312; 92526; 92610; 93005; 93306; 94002; 94003; 94640; 94660; 94799; 96365; 96366; 96375; 97110; 97163; 97165; 97530; 97535; 99291; J0171; J0282; J0295; J0456; J0696; J0712; J1160; J1450; J1644; J1940; J1956; J2060; J2270; J2543; J2704; J2920; J2930; J3370; J3480; J3490; J7040; J7050; J7060